=== PATIENT | female | born 1930 | race Caucasian/White ===

== ENCOUNTER 2018-01-24 15:26 | Emergency (ER) | payer OTHER ==
--- NOTE | 2018-01-24 15:55 | ER ---
Nurse's Notes [facility] Name: Clifton Wagoner Age: 87 yrs Sex: Female : 1930 Arrival Date: 01/24/2018 Time: 15:30 Bed Treatment Private MD: Diagnosis: Rash and other nonspecific skin eruption Presentation: 01/24 15:33 Presenting complaint: Patient states: RASH ON MY CHEST FOR THE PAST 5 YEARS, IT ITCHES. ch NO OTHER SYMPTOMS. Transition of care: patient was not received from another setting of care. Onset: The symptoms/episode began/occurred 5 year(s) ago. Anaphylaxis evaluation, no signs or symptoms of anaphylaxis were noted. Onset of symptoms was 2012. Risk Assessment: Do you want to hurt yourself or someone else? Patient reports no desire to harm self or others. Initial Sepsis Screen: Does the patient meet any 2 criteria? No. Patient's initial sepsis screen is negative. Does the patient have a suspected source of infection? No. Patient's initial sepsis screen is negative. Care prior to arrival: None. 15:33 Method Of Arrival: Ambulatory 15:33 Acuity: RENETTA 5 ch Triage Assessment: 15:35 General: Appears in no apparent distress. comfortable, Behavior is calm, cooperative, ch appropriate for age. Pain: Denies pain. Derm: Reports itching. 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 - Social history:: Smoking status: Patient uses tobacco products, smokes one-half pack cigarettes per day. - Ebola Screening: : Patient negative for fever greater than or equal to 101.5 degrees Fahrenheit, and additional compatible Ebola Virus Disease symptoms Patient denies exposure to infectious person Patient denies travel to an Ebola-affected area in the 21 days before illness onset No symptoms or risks identified at this time. - Family history:: not pertinent. Screenin:05 Abuse screen: Denies threats or abuse. Denies injuries from another. Nutritional rv screening: No deficits noted. Tuberculosis screening: No symptoms or risk factors identified. Fall Risk No fall in past 12 months (0 pts). No secondary diagnosis (0 pts). No IV (0 pts). Ambulatory Aid- Crutches/Cane/Walker (15 pts). Gait- Normal/Bed Rest/Wheelchair (0 pts) Mental Status- Oriented to own ability (0 pts). Total Dickerson Fall Scale indicates No Risk (0-24 pts). Assessment: 16:04 General: Appears in no apparent distress. comfortable, Behavior is calm, cooperative. rv Pain: Denies pain. Neuro: Level of Consciousness is awake, alert, obeys commands, Oriented to person, place, time, situation. Cardiovascular: Capillary refill < 3 seconds. Respiratory: Airway is patent Respiratory effort is even, Breath sounds are clear bilaterally. GI: No signs and/or symptoms were reported involving the gastrointestinal system. : No signs and/or symptoms were reported regarding the genitourinary system. EENT: No signs and/or symptoms were reported regarding the EENT system. Derm: Rash noted that is itchy. Vital Signs: 15:35 BP 158 / 66; Pulse 75; Resp 20; Temp 99; Pulse Ox 95% on R/A; Weight 74.39 kg; Height 5 ch ft. 9 in. (175.26 cm); Pain 0/10; 16:06 BP 156 / 62; Pulse 77; Pulse Ox 95% on R/A; rv 15:35 Body Mass Index 24.22 (74.39 kg, 175.26 cm) ED Course: 15:30 Patient arrived in ED. as 15:34 Triage completed. 15:35 Arm band placed on left wrist. Patient placed in an exam room, on a stretcher. 15:37 Bartolome Yin MD is Attending Physician. ma2 16:06 Patient has correct armband on for positive identification. Bed in low position. Call rv light in reach. Side rails up X 1. Adult w/ patient. Pulse ox on. NIBP on. 16:06 No provider procedures requiring assistance completed. Patient did not have IV access rv during this emergency room visit. Administered Medications: No medications were administered Outcome: 15:54 Discharge ordered by . ma2 16:06 Discharged to home ambulatory. rv 16:06 Condition: good 16:06 Discharge instructions given to patient, family, Instructed on discharge instructions, follow up and referral plans. medication usage, Demonstrated understanding of instructions, follow-up care, medications, Prescriptions given X 1. 16:07 Patient left the ED. rv Signatures: Penny Costa, RN RN Dayana Solorzano Mohammad, MD MD ma2 Guy Gould RN RN rv
--- NOTE | 2018-01-24 15:55 | EDPHYS ---
Physician Documentation [facility] Name: Clifton Wagoner Age: 87 yrs Sex: Female : 1930 Arrival Date: 01/24/2018 Time: 15:30 Bed Treatment Private MD: ED Physician Bartolome Yin HPI: 01/24 15:51 This 87 yrs old Female presents to ER via Ambulatory with complaints of Rash, ma2 Itching. 15:51 The patient's rash thought to be caused by allergies. The rash is located on the chest. ma2 Onset: The symptoms/episode began/occurred gradually, 3 day(s) ago. Associated signs and symptoms: Pertinent negatives: burning sensation, difficulty breathing, fever, Pain swelling of tongue. Severity of symptoms: At their worst the symptoms were mild in the emergency department the symptoms are unchanged. Treatment given at home: Benadryl. The patient has not experienced similar symptoms in the past, The patient has experienced similar episodes in the past. 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 - Social history:: Smoking status: Patient uses tobacco products, smokes one-half pack cigarettes per day. - Ebola Screening: : Patient negative for fever greater than or equal to 101.5 degrees Fahrenheit, and additional compatible Ebola Virus Disease symptoms Patient denies exposure to infectious person Patient denies travel to an Ebola-affected area in the 21 days before illness onset No symptoms or risks identified at this time. - Family history:: not pertinent. ROS: 15:51 Constitutional: Negative for fever, chills, and weight loss, Cardiovascular: Negative ma2 for chest pain, palpitations, and edema, Respiratory: Negative for shortness of breath, cough, wheezing, and pleuritic chest pain, Abdomen/GI: Negative for abdominal pain, nausea, diarrhea, and constipation. 15:51 Skin: Positive for rash, Negative for abscesses, avulsion, diaphoresis, erythema, jaundice. 15:51 All other systems are negative. Exam: 15:51 Constitutional: This is a well developed, well nourished patient who is awake, alert, ma2 and in no acute distress. Chest/axilla: Normal chest wall appearance and motion. Nontender with no deformity. No lesions are appreciated. Cardiovascular: Regular rate and rhythm with a normal S1 and S2. No gallops, murmurs, or rubs. Normal PMI, no JVD. No pulse deficits. Respiratory: Lungs have equal breath sounds bilaterally, clear to auscultation and percussion. No rales, rhonchi or wheezes noted. No increased work of breathing, no retractions or nasal flaring. MS/ Extremity: Pulses equal, no cyanosis. Neurovascular intact. Full, normal range of motion. Neuro: Awake and alert, GCS 15, oriented to person, place, time, and situation. Cranial nerves II-XII grossly intact. Motor strength 5/5 in all extremities. Sensory grossly intact. Cerebellar exam normal. Normal gait. 15:51 Skin: lesion(s), has a fungal rash between breast and another ecchymosis above that, takes plavix . Vital Signs: 15:35 BP 158 / 66; Pulse 75; Resp 20; Temp 99; Pulse Ox 95% on R/A; Weight 74.39 kg; Height 5 ch ft. 9 in. (175.26 cm); Pain 0/10; 16:06 BP 156 / 62; Pulse 77; Pulse Ox 95% on R/A; rv 15:35 Body Mass Index 24.22 (74.39 kg, 175.26 cm) ch MDM: 15:37 Patient medically screened. ca2 15:51 Differential diagnosis: allergic reaction, ecchymosis, fungal rash. Data reviewed: [facility] vital signs, nurses notes, EMS record. Counseling: I had a detailed discussion with the patient and/or guardian regarding: the historical points, exam findings, and any diagnostic results supporting the discharge/admit diagnosis, the presence of at least one elevated blood pressure reading (>120/80) during this emergency department visit, the need for outpatient follow up. Administered Medications: No medications were administered Disposition: 01/24/18 15:54 Discharged to Home. Impression: Rash and other nonspecific skin eruption. - Condition is Stable. - Discharge Instructions: Rash, [id number]. - Prescriptions for Nystatin- Triamcinolone 100,000-0.1 unit/g-% Topical Cream - apply 1 application by TOPICAL route 2 times per day; 1 tube. - Medication Reconciliation Form, Thank You Letter, Antibiotic Education, Prescription Opioid Use form. - Follow up: Private Physician; When: Tomorrow; Reason: Continuance of care. Signatures: Penny Costa, MAUDE RN Bartolome Cantrell MD MD ma2 Guy Gould RN RN rv Corrections: (The following items were deleted from the chart) 16:07 15:54 01/24/2018 15:54 Discharged to Home. Impression: Rash and other nonspecific skin rv eruption. Condition is Stable. Forms are Medication Reconciliation Form, Thank You Letter, Antibiotic Education, Prescription Opioid Use. Follow up: Private Physician; When: Tomorrow; Reason: Continuance of care. ma2
== END 2018-01-24 16:07 | disposition home or self-care (01) ==
LOC: ER 15:26
DX: R21 Rash and other nonspecific skin eruption (principal); I10 Essential (primary) hypertension; E11.9 Type 2 diabetes mellitus without complications; F17.210 Nicotine dependence, cigarettes, uncomplicated; Z88.3 Allergy status to other anti-infective agents
CPT/HCPCS: 99283

== ENCOUNTER 2018-05-12 08:27 | Inpatient (IN) | payer OTHER ==
[2018-05-12 08:51] LABS: Absolute Lymphocytes (CBC) 0.7 K/uL (0.7-4.9); Absolute Monocytes 0.3 K/uL (0.1-1.3); Absolute Neutrophil 16.7 K/uL (1.8-8.0); Basophils % 0.1 % (0-1.3); Eosinophils % 1.1 % (0-4.4); Hematocrit 35.8 % (36.0-45.0); MPV 7.2 fL (7.6-11.3); Monocytes % 1.9 % (3.3-12.3)
[2018-05-12] MEDS ORDERED: ACETAMINOPHEN 500 MG TAB ONE ×3 (08:51→16:32)
[2018-05-12] MEDS ORDERED: LEVALBUTEROL 1.25 MG/3 ML NEB ONE ×2 (08:51→10:07)
[2018-05-12 08:57] LABS: Protime INR 1.04
[2018-05-12 09:18] LABS: ALT/SGPT 18 U/L (12-78); AST/SGOT 28 U/L (15-37); Albumin 3.3 g/dL (3.4-5.0); Alkaline Phosphatase 133 U/L (45-117); BUN Blood Urea Nitrogen 25 mg/dL (7-18); Bicarbonate 28 mmol/L (21-32); Bilirubin Direct 0.2 mg/dL (0-0.2); Bilirubin Total 0.4 mg/dL (0.2-1.0); CKMB Creatine Kinase MB < 1.0 ng/mL (0.3-3.6); Creatine Phosphokinase 99 U/L (26-192); Glucose Level 88 mg/dL (74-106); Lipase 74 U/L (73-393); Potassium 4.9 mmol/L (3.5-5.1); Sodium Level 140 mmol/L (136-145); Troponin (Emerg Dept Use Only) < 0.02 ng/mL (0.0-0.045)
[2018-05-12 09:46] LABS: Anisocytosis 1+; Basophilic Stippling 1+; Blood Morphology Comment NOTED (NOT SEEN); Platelet Estimate ADEQ; Platelets, Giant FEW; Polychromasia 1+
--- NOTE | 2018-05-12 09:47 | RAD REPORT ---
EXAM DESCRIPTION: Dinorah Single View05/12/2018 9:05 am CLINICAL HISTORY: Shortness of breath COMPARISON: April 25, 2018 FINDINGS: Diffuse bilateral interstitial lung opacities are present. Heart is mildly enlarged IMPRESSION: Mild progression in diffuse bilateral interstitial lung opacities likely represent a co mbination of pneumonitis/atypical pneumonia or pulmonary edema superimposed over pulmonary fibrosis
[2018-05-12] MEDS ORDERED: CEFTRIAXONE/SWI 1gm 1 GM/10 ML SYR ONE (09:55)
[2018-05-12] MEDS ORDERED: AZITHROMYCIN 500 MG/250 ML BAG ONE (09:56)
--- NOTE | 2018-05-12 10:33 | ER ---
Nurse's Notes [facility] Name: Clifton Wagoner Age: 88 yrs Sex: Female : 1930 Arrival Date: 05/12/2018 Time: 08:29 Bed 7 Private MD: Diagnosis: Pneumonia, unspecified organism;Sepsis, unspecified organism Presentation: 05/12 08:26 Presenting complaint: EMS states: called for lift assist first but pt had generalized sv leg weakness, dyspnea, cough. 87% RA, A\T\A tx given 97%, Solumedrol 125 mg IVP, BP 163/72 HR-88 Temp-101.7. 20G R AC. Transition of care: patient was not received from another setting of care. Onset of symptoms was May 12, 2018. Risk Assessment: Do you want to hurt yourself or someone else? Patient reports no desire to harm self or others. Initial Sepsis Screen: Does the patient meet any 2 criteria? RR > 20 per min. Temp <36.0*C (96.8*F)) or > 38.3*C (100.9*F). HR > 90 bpm. Yes Does the patient have a suspected source of infection? No. Patient's initial sepsis screen is negative. Care prior to arrival: Medication(s) given: Albuterol Neb x 1, Atrovent Neb x 1, Solumedrol 125 mg IVP IV initiated. 20 GA, in the right antecubital area, Med neb given. Oxygen administered. via a nebulizer mask. 08:26 Method Of Arrival: EMS: [facility] sv 08:26 Acuity: RENETTA 2 sv Triage Assessment: 08:30 General: Appears in no apparent distress. uncomfortable, Behavior is calm, cooperative, sv appropriate for age. Pain: Denies pain. Neuro: Level of Consciousness is awake, alert, obeys commands, Oriented to person, place, time, situation, Moves all extremities. Full function. Respiratory: Reports shortness of breath at rest on exertion Airway is patent Respiratory effort is even, labored, Respiratory pattern is symmetrical, tachypnea Onset: The symptoms/episode began/occurred this morning, the patient has moderate shortness of breath. Derm: Skin is pink, warm \T\ dry. Historical: - Allergies: 08:37 STRIPTOMYCIN; sv - Home Meds: 08:54 ProAir HFA inhalation inhalation [Active]; fenofibrate oral oral [Active]; gabapentin sv 600 mg oral tab 1 tab 3 times per day [Active]; Melrose 10-325 mg Oral tab 1 tab every 6 hours [Active]; amlodipine 10 mg tab 1 tab once daily [Active]; clopidogrel 75 mg oral tab 1 tab once daily [Active]; donepezil 10 mg oral tab 1 tab once daily [Active]; montelukast 10 mg oral tab 1 tab once daily [Active]; pantoprazole 40 mg oral TbEC 1 tab once daily [Active]; duloxetine 60 mg oral cpDR 1 cap once daily [Active]; Centrum oral oral [Active]; cranberry oral oral [Active]; Vitamin E Oral [Active]; Stool Softener oral oral [Active]; - PMHx: 08:37 Asthma; Diabetes - NIDDM; 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 - Social history:: Smoking status: Patient/guardian denies using tobacco. - Ebola Screening: : No symptoms or risks identified at this time. Screenin:50 Abuse screen: Denies threats or abuse. Denies injuries from another. Nutritional sv screening: No deficits noted. Tuberculosis screening: No symptoms or risk factors identified. Fall Risk None identified. Assessment: 10:18 Reassessment: Patient appears in no apparent distress at this time. Patient and/or sv family updated on plan of care and expected duration. Pain level reassessed. Patient is alert, oriented x 3, equal unlabored respirations, skin warm/dry/pink. Patient states symptoms have improved. Respiratory: Respiratory effort is even, unlabored, Respiratory pattern is regular, tachypnea Breath sounds with wheezes bilaterally. 10:55 Reassessment: Patient appears in no apparent distress at this time. Patient and/or sv family updated on plan of care and expected duration. Pain level reassessed. Patient is alert, oriented x 3, equal unlabored respirations, skin warm/dry/pink. Patient states symptoms have improved. Respiratory: Respiratory effort is even, unlabored, Respiratory pattern is regular, tachypnea. 11:32 Reassessment: Patient appears in no apparent distress at this time. Patient and/or sv family updated on plan of care and expected duration. Pain level reassessed. Patient is alert, oriented x 3, equal unlabored respirations, skin warm/dry/pink. Patient states symptoms have improved. 13:21 Reassessment: Patient appears in no apparent distress at this time. Patient and/or sv family updated on plan of care and expected duration. Pain level reassessed. Patient is alert, oriented x 3, equal unlabored respirations, skin warm/dry/pink. Patient states feeling better. Patient states symptoms have improved. Cardiovascular: Rhythm is sinus rhythm. Vital Signs: 08:30 BP 144 / 57; Pulse 104 MON; Resp 32 S; Temp 102.6(O); Pulse Ox 98% on R/A; sv 10:09 BP 123 / 68; Pulse 92; Resp 26; Pulse Ox 100% ; ms 10:22 BP 129 / 53; Pulse 99; Resp 22; Pulse Ox 100% on Nebulizer Mask; sv 10:54 Temp 99.9(O); sv 11:32 BP 101 / 76; Pulse 100; Resp 26; Pulse Ox 99% on 2 lpm NC; sv 08:30 Sinus tachycardia sv ED Course: 08:26 Maintain EMS IV. Dressing intact. Good blood return noted. Site clean \T\ dry. Gauge \T\ sv site: 20G R AC. Flushed right antecubital with 5 ml normal saline. 08:29 Patient arrived in ED. ss 08:30 Arm band placed on. sv 08:30 certified scrum master on. Pulse ox on. NIBP on. Door closed. Head of bed elevated. sv 08:31 Frederic Buck MD is Attending Physician. kdr 08:32 Heather Lopes, MAUDE is Primary Nurse. sv 08:35 Initial lab(s) drawn, by ED staff, sent to lab. sv 08:36 Triage completed. sv 08:49 EKG done, by diesel lube tech. reviewed by Frederic Buck MD. at1 08:50 Patient has correct armband on for positive identification. Placed in gown. Bed in low sv position. Side rails up X 1. Adult w/ patient. 09:00 Basic Metabolic Panel Sent. sv 09:00 CBC with Diff Sent. sv 09:00 Ckmb Sent. sv 09:05 Chest Single View XRAY In Process Unspecified. EDMS 09:40 First set of blood cultures drawn by ak. sv 09:55 Second set of blood cultures drawn by me. sv 10:30 Samina Alberto MD is Hospitalizing Provider. kdr 10:34 Blood Culture Adult (2) Sent. sv 11:32 Awaiting bed assignment. sv 13:21 No provider procedures requiring assistance completed. Patient admitted, IV remains in sv place. intact. Administered Medications: 08:48 CANCELLED (Physician Discretion): NS 0.9% (30 ml/kg) 30 ml/kg IV at bolus once; Sepsis sv Protocol 08:49 Drug: Tylenol 1000 mg Route: PO; sv 09:30 Follow up: Response: No adverse reaction sv 08:49 Drug: Xopenex (3) 1.25 mg Route: Inhalation; sv 10:12 Drug: Rocephin - (cefTRIAXone) 1 grams Route: IVPB; Infused Over: 30 mins; Site: right sv antecubital; 10:18 Follow up: Response: No adverse reaction; IV Status: Completed infusion; IV Intake: 10mlsv 10:18 Drug: AZITHromycin 500 mg Route: IVPB; Infused Over: 1 hrs; Site: right antecubital; sv 11:24 Follow up: IV Status: Completed infusion; IV Intake: 250ml dm5 10:21 Drug: Xopenex (3) 1.25 mg Route: Inhalation; sv 10:57 Drug: NS 0.9% 500 ml Route: IV; Rate: bolus; Site: right antecubital; sv 11:45 Follow up: Response: No adverse reaction; IV Status: Completed infusion; IV Intake: sv 500ml Point of Care Testing: Blood Glucose: 08:33 Blood Glucose: 99 mg/dL; sv Ranges: Intake: 10:18 IV: 10ml; Total: 10ml. sv 11:24 IV: 250ml; Total: 260ml. dm5 11:45 IV: 500ml; Total: 760ml. sv Outcome: 10:32 Decision to Hospitalize by Provider. kdr 13:22 Admitted to Tele accompanied by tech, family with patient, via stretcher, room 214, sv with oxygen, with chart, Report called to Rayna SANTORO 13:22 Condition: stable 13:22 Instructed on the need for admit. 13:31 Patient left the ED. sv Signatures: Dispatcher [facility] Karol Ariza, RN RN dm5 Heather Lopes RN RN Frederic Covington MD MD [facility] Taya Espinoza ms, [place], RN RN Lauren Reddy, [facility] EK Tat1
--- NOTE | 2018-05-12 10:34 | EDPHYS ---
Physician Documentation [facility] Name: Clifton Wagoner Age: 88 yrs Sex: Female : 1930 Arrival Date: 05/12/2018 Time: 08:29 Bed 7 Private MD: ED Physician Frederic Buck HPI: 05/12 09:50 This 88 yrs old Female presents to ER via EMS with complaints of Shortness Of kdr Breath. 09:50 The patient has shortness of breath at rest, with light activity. Onset: The kdr symptoms/episode began/occurred suddenly, this morning. Duration: The symptoms are continuous, and are steadily getting worse. The patient's shortness of breath is aggravated by exertion, light activity. The patient's shortness of breath is aggravated by coughing. Associated signs and symptoms: Pertinent positives:. Severity of symptoms: At their worst the symptoms were moderate severe just prior to arrival, in the emergency department the symptoms are unchanged. It is unknown whether or not the patient has had similar symptoms in the past. The patient has not recently seen a physician. Historical: - Allergies: 08:37 STRIPTOMYCIN; sv - Home Meds: 08:54 ProAir HFA inhalation inhalation [Active]; fenofibrate oral oral [Active]; gabapentin sv 600 mg oral tab 1 tab 3 times per day [Active]; [place] 10-325 mg Oral tab 1 tab every 6 hours [Active]; amlodipine 10 mg tab 1 tab once daily [Active]; clopidogrel 75 mg oral tab 1 tab once daily [Active]; donepezil 10 mg oral tab 1 tab once daily [Active]; montelukast 10 mg oral tab 1 tab once daily [Active]; pantoprazole 40 mg oral TbEC 1 tab once daily [Active]; duloxetine 60 mg oral cpDR 1 cap once daily [Active]; Centrum oral oral [Active]; cranberry oral oral [Active]; Vitamin E Oral [Active]; Stool Softener oral oral [Active]; - PMHx: 08:37 Asthma; Diabetes - NIDDM; 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 - Social history:: Smoking status: Patient/guardian denies using tobacco. - Ebola Screening: : No symptoms or risks identified at this time. ROS: 09:50 Constitutional: Negative for weight loss - has had fever and chills Eyes: Negative for kdr injury, pain, redness, and discharge, Neck: Negative for injury, pain, and swelling, Cardiovascular: Negative for chest pain, palpitations, and edema. 09:50 Abdomen/GI: Negative for abdominal pain, nausea, vomiting, diarrhea, and constipation, Back: Negative for injury and pain, : Negative for injury, bleeding, discharge, and swelling, MS/Extremity: Negative for injury and deformity, Skin: Negative for injury, rash, and discoloration, Neuro: Negative for headache, weakness, numbness, tingling, and seizure activity. Psych: Negative for depression, anxiety, suicide ideation, homicidal ideation, and hallucinations, Allergy/Immunology: Negative for hives, rash, and allergies, Endocrine: Negative for neck swelling, polydipsia, polyuria, polyphagia, and marked weight changes, Hematologic/Lymphatic: Negative for swollen nodes, abnormal bleeding, and unusual bruising. 09:50 Respiratory: Positive for cough, with clear sputum, dyspnea on exertion, shortness of breath, at rest. wheezing, expiratory. Exam: 09:50 Constitutional: This is a well developed, well nourished patient who is awake, alert, kdr and in mild to moderate distress. Head/Face: Normocephalic, atraumatic. Eyes: Pupils equal round and reactive to light, extra-ocular motions intact. Lids and lashes normal. Conjunctiva and sclera are non-icteric and not injected. Cornea within normal limits. Periorbital areas with no swelling, redness, or edema. Neck: Trachea midline, no thyromegaly or masses palpated, and no cervical lymphadenopathy. Supple, full range of motion without nuchal rigidity, or vertebral point tenderness. No Meningismus. Chest/axilla: Normal chest wall appearance and motion. Nontender with no deformity. No lesions are appreciated. Abdomen/GI: Soft, non-tender, with normal bowel sounds. No distension or tympany. No guarding or rebound. No evidence of tenderness throughout. Back: No spinal tenderness. No costovertebral tenderness. Full range of motion. MS/ Extremity: Pulses equal, no cyanosis. Neurovascular intact. Full, normal range of motion. Neuro: Awake and alert, GCS 15, oriented to person, place, time, and situation. Cranial nerves II-XII grossly intact. Motor strength 5/5 in all extremities. Sensory grossly intact. Cerebellar exam normal. Normal gait. Psych: Awake, alert, with orientation to person, place and time. Behavior, mood, and affect are within normal limits. 09:50 Respiratory: mild respiratory distress is noted, Respirations: labored breathing, that is mild, Breath sounds: rales, bronchial sounds, that are moderate, are heard diffusely, wheezing: that is moderate, is heard diffusely. Vital Signs: 08:30 BP 144 / 57; Pulse 104 MON; Resp 32 S; Temp 102.6(O); Pulse Ox 98% on R/A; sv 10:09 BP 123 / 68; Pulse 92; Resp 26; Pulse Ox 100% ; ms 10:22 BP 129 / 53; Pulse 99; Resp 22; Pulse Ox 100% on Nebulizer Mask; sv 10:54 Temp 99.9(O); sv 11:32 BP 101 / 76; Pulse 100; Resp 26; Pulse Ox 99% on 2 lpm NC; sv 08:30 Sinus tachycardia sv MDM: 10:32 Patient medically screened. kdr 10:32 Data reviewed: vital signs, nurses notes, lab test result(s), radiologic studies. kdr Counseling: I had a detailed discussion with the patient and/or guardian regarding: the historical points, exam findings, and any diagnostic results supporting the discharge/admit diagnosis, lab results, radiology results, the need for further work-up and treatment in the hospital. 05/12 08:39 Order name: Basic Metabolic Panel 05/12 08:39 Order name: Blood Culture Adult (2) 05/12 08:39 Order name: CBC with Diff 05/12 08:39 Order name: Ckmb 05/12 08:39 Order name: CPK; Complete Time: 09:34 05/12 08:39 Order name: Lactate; Complete Time: 09:34 05/12 08:39 Order name: LFT's; Complete Time: 09:34 05/12 08:39 Order name: Lipase; Complete Time: 09:34 05/12 08:39 Order name: Procalcitonin; Complete Time: 09:34 05/12 08:39 Order name: Protime (+inr); Complete Time: 09:34 05/12 08:39 Order name: Ptt, Activated; Complete Time: 09:34 sv 05/12 08:39 Order name: Troponin (emerg Dept Use Only); Complete Time: 09:34 sv 05/12 08:39 Order name: Urine Microscopic Only sv 05/12 08:40 Order name: Basic Metabolic Panel; Complete Time: 09:34 EDMS 05/12 08:39 Order name: Chest Single View XRAY; Complete Time: 10:26 sv 05/12 08:39 Order name: Accucheck; Complete Time: 08:48 sv 05/12 08:40 Order name: Blood Culture EDMS 05/12 08:40 Order name: CBC with Automated Diff; Complete Time: 10:26 EDMS 05/12 08:40 Order name: CKMB Creatine Kinase MB; Complete Time: 09:34 EDMS 05/12 08:58 Order name: EKG Electrocardiogram; Complete Time: 09:00 EDMS 05/12 09:49 Order name: Manual Differential; Complete Time: 10:26 EDMS 05/12 10:38 Order name: BNP [facility] 05/12 08:39 Order name: Cardiac monitoring; Complete Time: 08:39 sv 05/12 08:39 Order name: EKG - Nurse/Tech; Complete Time: 08:40 sv 05/12 08:39 Order name: IV Saline Lock - Large Bore; Complete Time: 08:40 sv 05/12 08:39 Order name: Labs collected and sent; Complete Time: 08:40 sv 05/12 08:39 Order name: O2 Per Protocol; Complete Time: 08:40 sv 05/12 08:39 Order name: O2 Sat Monitoring; Complete Time: 08:40 sv Administered Medications: 08:48 CANCELLED (Physician Discretion): NS 0.9% (30 ml/kg) 30 ml/kg IV at bolus once; Sepsis sv Protocol 08:49 Drug: Tylenol 1000 mg Route: PO; sv 09:30 Follow up: Response: No adverse reaction sv 08:49 Drug: Xopenex (3) 1.25 mg Route: Inhalation; sv 10:12 Drug: Rocephin - (cefTRIAXone) 1 grams Route: IVPB; Infused Over: 30 mins; Site: right sv antecubital; 10:18 Follow up: Response: No adverse reaction; IV Status: Completed infusion; IV Intake: 10mlsv 10:18 Drug: AZITHromycin 500 mg Route: IVPB; Infused Over: 1 hrs; Site: right antecubital; sv 11:24 Follow up: IV Status: Completed infusion; IV Intake: 250ml dm5 10:21 Drug: Xopenex (3) 1.25 mg Route: Inhalation; sv 10:57 Drug: NS 0.9% 500 ml Route: IV; Rate: bolus; Site: right antecubital; sv 11:45 Follow up: Response: No adverse reaction; IV Status: Completed infusion; IV Intake: sv 500ml Point of Care Testing: Blood Glucose: 08:33 Blood Glucose: 99 mg/dL; sv Ranges: Critical Glucose Levels:Adult <50 mg/dl or >400 mg/dl <40 mg/dl or >180 mg/dl Disposition: 05/12/18 10:32 Hospitalization ordered by Samina Alberto for Inpatient Admission. Preliminary diagnosis are Pneumonia, unspecified organism, Sepsis, unspecified organism. - Bed requested for Telemetry/MedSurg (Inpatient). - Status is Inpatient Admission. sv - Condition is Serious. - Problem is new. - Symptoms have improved. UTI on Admission? No Signatures: Dispatcher [employer] EDMI Heather Lopes RN RN Jessica Walden RN RN Frederic Buck MD MD [facility] Karol Roberson RN dm5 Corrections: (The following items were deleted from the chart) 08:48 08:39 NS 0.9% (30 ml/kg) 30 ml/kg IV at bolus once; Sepsis Protocol ordered. sv sv 09:51 08:58 CBC Smear Scan ordered. EDMI EDMS 13:12 10:32 Hospitalization Ordered by Samina Alberto MD for Inpatient Admission. Preliminary diagnosis is Pneumonia, unspecified organism; Sepsis, unspecified organism. Bed requested for Telemetry/MedSurg (Inpatient). Status is Inpatient Admission. Condition is Serious. Problem is new. Symptoms have improved. UTI on Admission? No. kdr 13:31 13:12 05/12/2018 10:32 Hospitalization Ordered by Samina Alberto MD for Inpatient sv Admission. Preliminary diagnosis is Pneumonia, unspecified organism; Sepsis, unspecified organism. Bed requested for Telemetry/MedSurg (Inpatient). Status is Inpatient Admission. Condition is Serious. Problem is new. Symptoms have improved. UTI on Admission? No. dw
[2018-05-12] MEDS ORDERED: NA CHLORIDE 0.9% 500 ML ONE (10:59)
--- NOTE | 2018-05-12 12:20 | EKG ---
Test Date: 2018-05-12 Test Time: 08:37:43 Hose Seamer: ZEUS MEASUREMENT RESULTS: Intervals: Rate: 104 [place]: 136 QRSD: 122 QT: 346 QTc: 454 [place]: P: 60 [place]: 136 QRS: 45 T: 3 INTERPRETIVE STATEMENTS: Sinus tachycardia Right bundle branch block Cannot rule out Septal infarct, age undetermined Cannot rule out Inferior infarct, age undetermined Abnormal ECG No previous ECG available for comparison Electronically Signed On 05-12-18 12:19:37 CADASTRAL SURVEYOR by Bandar Nguyễn
[2018-05-12] MEDS ORDERED: ONDANSETRON 4 MG/2 ML VIAL IV PRN (13:29)
[2018-05-12] MEDS: IPRATROPIUM BROM 0.5MG/2.5ML NEB SCH ×2 (14:00→19:18)
[2018-05-12 14:24] VITALS: BMI 24.7
[2018-05-12] MEDS: ENOXAPARIN 40 MG/0.4 ML SQ SCH (14:48)
[2018-05-12] MEDS: ACETAMINOPHEN 500 MG TAB PO PRN (16:33)
--- NOTE | 2018-05-12 17:19 | P.HP ---
Certification for Inpatient Patient admitted to: Inpatient Practitioner: I am a practitioner with admitting privileges, knowledge of patient current condition, hospital course, and medical plan of care. Services: Services provided to patient in accordance with Admission requirements found in Title 42 Section 412.3 of the Code of Federal Regulations Patient History Date of Service: 05/12/18 Reason for admission: Shortness of breath History of Present Illness: This is an 88-year-old female with history of hypertension, COPD, current smoker admitted for shortness of breath and fever. Per her [id number], patient this morning while getting out of bed, could not stand up and started sliding down. She was also having wheezing and shortness of breath. Sister-in- law called the EMS, and patient was brought to the ER via EMS. In the ER, patient's initial vitals were blood pressure 144/57, heart rate of 107, respirations of 32 and 98% on room air. She was given Xopenex, Rocephin and Zithromax. Her lactic acid was negative, but she did have elevated pro calcitonin with elevated WBC count. She responded well to the breathing treatments. She was found to have possible left lower lobe pneumonia versus pneumonitis versus pulmonary fibrosis on chest x-ray. At the time of my exam, patient was sleepy, but arousable. She was on the nasal cannula and in no acute distress. Of note, patient was started on nitrofurantoin yesterday for a UTI. She has taken only 1 dose of it so far. At baseline, patient uses a walker at home to get to the bathroom and to go outside to smoke. Other than that, her [id number] states that she does not really go out too much. When she does walk more than around the house, she gets short of breath very quickly. She continues to smoke approximately 1 pack a day. Sister also states that she has had this rash on her chest for about a year but she continues to periodically scratch. She has created a pretty big wound on the chest. She has also tried 2 tubes of some sort of cream, sister in law is not sure of the name of the cream but will bring it tomorrow. Allergies streptomycin Allergy (Verified 05/12/18 10:39) Hives Home Medications: Albuterol Sulfate [Proair Hfa] 1 puff IH DAILY 05/12/18 Amlodipine Besylate 10 mg PO DAILY 05/12/18 Clopidogrel Bisulfate [Clopidogrel] 75 mg PO DAILY 05/12/18 Docusate Sodium [Stool Softener] 100 mg PO DAILY 05/12/18 Donepezil HCl 10 mg PO BEDTIME 05/12/18 Duloxetine HCl 60 mg PO DAILY 05/12/18 Fenofibrate Nanocrystallized [Fenofibrate] 145 mg PO DAILY 05/12/18 Gabapentin 600 mg PO TID 05/12/18 Hydrocodone Bit/Acetaminophen [Hydrocodon-Acetaminoph 7.5-325] 1 tab PO QIDP PRN 05/12/18 Montelukast [Singulair*] 10 mg PO DAILY 05/12/18 Multivitamin [Daily Multiple Vitamin] 1 tab PO DAILY 05/12/18 Nitrofurantoin Monohyd/M-Cryst [Nitrofurantoin [place]-Mcr 100 mg] 100 mg PO BID Pantoprazole Sodium 40 mg PO DAILY 05/12/18 Vitamin E 400 unit PO BID 05/12/18 - Past Medical/Surgical History Has patient received pneumonia vaccine in the past: Yes Diabetic: No -: HTN -: COPD -: Depression -: Hyperlipidemia -: Dementia - Social History Smoking Status: Current every day smoker Alcohol use: No CD- Drugs: No Caffeine use: No Place of Residence: Home Review of Systems 10-point ROS is otherwise unremarkable Physical Examination - Vital Signs Temperature: 98.9 F Blood Pressure: 145/67 Pulse: 100 Respirations: 26 Pulse Ox (%): 92 - Physical Exam General: In no apparent distress, Cachectic, Other (Sleepy, arousable; elderly, ill appearing woman) HEENT: Atraumatic, PERRLA, Mucous membr. moist/pink, EOMI, Sclerae nonicteric Neck: Supple, 2+ carotid pulse no bruit, No LAD, Without JVD or thyroid abnormality Respiratory: Dull, Crackles/rales, Expiratory wheezes Cardiovascular: Normal S1 S2, Irregular heart rate/rhythm Gastrointestinal: Normal bowel sounds, No tenderness Musculoskeletal: No tenderness Integumentary: Rash(es) (Noted on her chest area, approximately 0.5 x 0.5 area of open lesion that patient has scratched.) Neurological: Other (Unable to be done as patient is very sleepy.) - Studies Laboratory Data (last 24 hrs) 05/12/18 08:40: PT 12.3, INR 1.04, APTT 29.8 05/12/18 08:40: WBC 18.0 H, Hgb 11.5 L, Hct 35.8 L, Plt Count 360 05/12/18 08:40: Sodium 140, Potassium 4.9, BUN 25 H, Creatinine 1.39 H, Glucose 88, Total Bilirubin 0.4, AST 28, ALT 18, Alkaline Phosphatase 133 H, Lipase 74 Assessment and Plan - Problems (Diagnosis) (1) Sepsis Current Visit: Yes Status: Acute Qualifiers: Sepsis type: sepsis due to unspecified organism Qualified Code(s): A41.9 - Sepsis, unspecified organism (2) COPD (chronic obstructive pulmonary disease) Current Visit: Yes Status: Chronic Qualifiers: COPD type: COPD with acute exacerbation Qualified Code(s): J44.1 - Chronic obstructive pulmonary disease with (acute) exacerbation (3) Pneumonia Current Visit: Yes Status: Acute Qualifiers: Pneumonia type: due to unspecified organism Laterality: left Lung location: lower lobe of lung Qualified Code(s): J18.1 - Lobar pneumonia, unspecified organism (4) UTI (urinary tract infection) Current Visit: Yes Status: Acute Qualifiers: Urinary tract infection type: site unspecified Hematuria presence: without hematuria Qualified Code(s): N39.0 - Urinary tract infection, site not specified (5) Hypertension Current Visit: Yes Status: Chronic Qualifiers: Hypertension type: essential hypertension Qualified Code(s): I10 - Essential (primary) hypertension (6) Rash and nonspecific skin eruption Current Visit: Yes Status: Chronic (7) Depression Current Visit: Yes Status: Chronic Qualifiers: Depression Type: unspecified Qualified Code(s): F32.9 - Major depressive disorder, single episode, unspecified (8) Tobacco abuse Current Visit: Yes Status: Acute - Plan This is an 88-year-old female with: Sepsis (Acute) A41.9 Febrile, tachycardic and elevated WBC. Possible sources include: UTI, pneumonia, skin/rash IV fluid bolus given in the ER. Will continue maintenance IV fluids at 75 cc/ hour. IV antibiotics with Rocephin and azithromycin, day #1. Follow up blood cultures. Urine cultures not done in the ER, ordered. Will follow up Pneumonia (Acute) J18.9 Continue IV antibiotics as above UTI (urinary tract infection) (Acute) N39.0 Continue IV antibiotics. No UA done in the ER. Stat UA ordered, will follow up on cultures. Unsure if anything will grow as patient already did receive Rocephin and Zithromax in the ER along with a dose of nitrofurantoin yesterday COPD (chronic obstructive pulmonary disease) (Chronic) J44.9 With acute exacerbation Continue Duonebs Current tobacco user, every day smoker of cigarettes Lead to be counseled on smoking cessation. Though per [id number], patient not interested in quitting smoking at this time. Depression (Chronic) F32.9 Resume home medication Hypertension (Chronic) I10 Stable. Will continue home medications and monitor Rash and nonspecific skin eruption (Chronic) R21 Unsure of etiology. Her ccvfpu-hs-syj, patient has had this rash for over a year, she has tried to creams though she is unsure what kind of cream is. She will bring the cream by tomorrow. She may have any MRSA colonization. Will go ahead and order a nasal swab to test along with hibiscus cleanse twice a day. DVT prophylaxis: Plavix, home medication GI prophylaxis: Protonix, home medication Diet: Heart healthy Disposition: Monitor on the floor, Pending symptomatic improvement Discharge Plan: Home - Advance Directives Does patient have a Living Will: Yes Does patient have a Durable POA for Healthcare: Yes
[2018-05-12] MEDS: LEVALBUTEROL 1.25 MG/3 ML NEB NEB SCH (19:18)
[2018-05-12] MEDS ORDERED: VITAMIN E 400 UNIT PO SCH (21:00)
[2018-05-12] MEDS ORDERED: HOME MED 1 EA UNK (Donepezil Hcl [Donepezil Hcl] 10 MG) PO SCH (21:00)
[2018-05-12] MEDS: DONEPEZIL HCL 5 MG TAB PO SCH (21:08)
[2018-05-12] MEDS: VITAMIN E 400 IU CAP PO SCH (21:08)
[2018-05-12 23:16] LABS: Urine Appearance CLEAR; Urine Bilirubin NEGATIVE (NEG); Urine Blood NEGATIVE (NEG); Urine Color YELLOW; Urine Glucose NEGATIVE (NEG); Urine Protein NEGATIVE (NEG); Urine Specific Gravity 1.015 (1.005-1.030); Urine Urobilinogen 0.2 mg/dL (0.2-1.0)
[2018-05-12] MEDS: CEFTRIAXONE/SWI 1gm 1 GM/10 ML SYR IVP SCH (23:20)
[2018-05-12 23:24] LABS: Urine Microscopic Reflex ORDER UMIC
[2018-05-12] MEDS: AZITHROMYCIN IV 500 MG in NA CHLORIDE 0.9% 250 ML IVPB SCH (23:31)
[2018-05-12 23:46] LABS: Urine Bacteria <20 /HPF (<20); Urine Culture Reflex Order REFLEXED; Urine RBC NONE SEEN /HPF (NONE SEEN)
[2018-05-13] MEDS: IPRATROPIUM BROM 0.5MG/2.5ML NEB SCH ×4 (01:00→20:00)
[2018-05-13] MEDS: LEVALBUTEROL 1.25 MG/3 ML NEB NEB SCH ×4 (01:00→20:00)
[2018-05-13 05:30] LABS: Absolute Lymphocytes (CBC) 0.5 K/uL (0.7-4.9); Absolute Monocytes 0.4 K/uL (0.1-1.3); Absolute Neutrophil 11.6 K/uL (1.8-8.0); Basophils % 0.2 % (0-1.3); Eosinophils % 0.2 % (0-4.4); Lymphocytes % 3.7 % (15.3-44.8); MPV 7.5 fL (7.6-11.3); Monocytes % 3.2 % (3.3-12.3); RBC Red Blood Cell Count 3.26 M/uL (3.86-4.86)
[2018-05-13 05:44] LABS: Albumin 2.6 g/dL (3.4-5.0); Bilirubin Total 0.2 mg/dL (0.2-1.0); Potassium 4.2 mmol/L (3.5-5.1); Protein, Total 6.2 g/dL (6.4-8.2)
[2018-05-13 06:48] LABS: Magnesium 2.3 mg/dL (1.8-2.4); Phosphorus 3.1 mg/dL (2.5-4.9)
[2018-05-13] MEDS: ENOXAPARIN 40 MG/0.4 ML SQ SCH (09:00)
[2018-05-13] MEDS ORDERED: CEFTRIAXONE/SWI 1gm 1 GM/10 ML SYR IVP SCH ×2 (09:00)
[2018-05-13] MEDS ORDERED: HOME MED 1 EA UNK (Clopidogrel Bisulfate [Clopidogrel] 75 MG) PO SCH (09:00)
[2018-05-13] MEDS ORDERED: HOME MED 1 EA UNK (Duloxetine Hcl [Duloxetine Hcl] 60 MG) PO SCH (09:00)
[2018-05-13] MEDS: AZITHROMYCIN IV 500 MG in NA CHLORIDE 0.9% 250 ML IVPB SCH (09:14)
[2018-05-13] MEDS: CEFTRIAXONE/SWI 1gm 1 GM/10 ML SYR IVP SCH (09:14)
[2018-05-13] MEDS: PANTOPRAZOLE 40MG TABLET PO SCH (09:15)
[2018-05-13] MEDS: FENOFIBRATE 160 MG TAB PO SCH (09:15)
[2018-05-13] MEDS: VITAMIN E 400 IU CAP PO SCH ×2 (09:16→20:40)
[2018-05-13] MEDS: DOCUSATE NA 100 MG CAP PO SCH (09:16)
[2018-05-13] MEDS: AMLODIPINE 10 MG TAB PO SCH (09:16)
[2018-05-13] MEDS: MONTELUKAST 10 MG TAB PO SCH (09:16)
[2018-05-13] MEDS: CLOPIDOGREL 75 MG TABLET PO SCH (09:16)
[2018-05-13] MEDS: MULTIVITAMIN TAB PO SCH (09:16)
[2018-05-13] MEDS: DULOXETINE 30 MG CAP PO SCH (09:16)
[2018-05-13] MEDS: ACETAMINOPHEN 500 MG TAB PO PRN ×2 (09:23→15:12)
--- NOTE | 2018-05-13 10:53 | P.PN ---
Subjective Date of Service: 05/13/18 Chief Complaint: Shortness of breath Subjective: Improving Patient seen and examined at bedside. Ogbvpn-[id number] at bedside. Chart reviewed and case discussed with nursing staff. Patient more awake and alert this morning. Reports drastic improvement breathing. Continues to be on 2 L nasal cannula. Per patient, she does have oxygen at home so she does not use it during the day. She always see oxygen at night, even though she was told she does needed throughout the day. No acute events overnight noted. Patient concerned that she is not receiving her home dose of [place] here in the hospital. Review of Systems 10-point ROS is otherwise unremarkable Physical Examination - Vital Signs Temperature: 98.3 F Blood Pressure: 171/74 Pulse: 100 Respirations: 22 Pulse Ox (%): 91 - Physical Exam General: Alert, In no apparent distress, Oriented x3 HEENT: Atraumatic, PERRLA, EOMI Neck: Supple, JVD not distended Respiratory: Expiratory wheezes, Inspiratory wheezes Cardiovascular: Regular rate/rhythm, Normal S1 S2 Gastrointestinal: Normal bowel sounds, No tenderness Musculoskeletal: No tenderness Integumentary: No rashes Neurological: Normal speech, Normal tone, Normal affect Lymphatics: No axilla or inguinal lymphadenopathy - Studies Microbiology Data (last 24 hrs): 05/12/18 09:40 Blood - Blood Anaerobic Blood Culture - Final Assessment And Plan - Current Problems (Diagnosis) (1) Sepsis Onset Date: 05/13/18 Current Visit: Yes Status: Acute Qualifiers: Sepsis type: sepsis due to unspecified organism Qualified Code(s): A41.9 - Sepsis, unspecified organism (2) COPD (chronic obstructive pulmonary disease) Onset Date: 05/13/18 Current Visit: Yes Status: Chronic Qualifiers: COPD type: COPD with acute exacerbation Qualified Code(s): J44.1 - Chronic obstructive pulmonary disease with (acute) exacerbation (3) Pneumonia Onset Date: 05/13/18 Current Visit: Yes Status: Acute Qualifiers: Pneumonia type: due to unspecified organism Laterality: left Lung location: lower lobe of lung Qualified Code(s): J18.1 - Lobar pneumonia, unspecified organism (4) UTI (urinary tract infection) Onset Date: 05/13/18 Current Visit: Yes Status: Acute Qualifiers: Urinary tract infection type: site unspecified Hematuria presence: without hematuria Qualified Code(s): N39.0 - Urinary tract infection, site not specified (5) Hypertension Onset Date: 05/13/18 Current Visit: Yes Status: Chronic Qualifiers: Hypertension type: essential hypertension Qualified Code(s): I10 - Essential (primary) hypertension (6) Rash and nonspecific skin eruption Onset Date: 05/13/18 Current Visit: Yes Status: Chronic (7) Depression Onset Date: 05/13/18 Current Visit: Yes Status: Chronic Qualifiers: Depression Type: unspecified Qualified Code(s): F32.9 - Major depressive disorder, single episode, unspecified (8) Tobacco abuse Onset Date: 05/13/18 Current Visit: Yes Status: Acute (9) Chronic lower back pain Current Visit: Yes Status: Acute Qualifiers: Back pain laterality: bilateral Sciatica presence: without sciatica Qualified Code(s): M54.5 - Low back pain; G89.29 - Other chronic pain - Plan This is an 88-year-old female with: Sepsis (Acute) A41.9 Improving Afebrile overnight, no longer tachycardic and leukocytosis improving Possible sources include: UTI, pneumonia, skin/rash Continue maintenance IV fluids at 75 cc/hour. IV antibiotics with Rocephin and azithromycin, day #2. Follow up blood cultures. Urine cultures not done in the ER, ordered. Will follow up Pneumonia (Acute) J18.9 Continue IV antibiotics as above UTI (urinary tract infection) (Acute) N39.0 Continue IV antibiotics as above. No UA done in the ER. Stat UA ordered, culture still pending . Unsure if anything will grow as patient already did receive Rocephin and Zithromax in the ER along with a dose of nitrofurantoin yesterday. COPD (chronic obstructive pulmonary disease) (Chronic) J44.9 With acute exacerbation Continue Duonebs IV steroids Current tobacco user, every day smoker of cigarettes Counseled on smoking cessation. Patient states that she is not interested in smoking cessation at this time. Depression (Chronic) F32.9 Resume home medication Hypertension (Chronic) I10 Stable. Will continue home medications and monitor Rash and nonspecific skin eruption (Chronic) R21 Unsure of etiology. Her sjndyl-ps-nla, patient has had this rash for over a year, she has tried to creams though she is unsure what kind of cream is. She will bring the cream by ivisorrow. She may have any MRSA colonization. Nasal swab pending. Chronic lower back pain Patient on [place] at home, will resume home medications. Physical therapy ordered. DVT prophylaxis: Plavix, home medication GI prophylaxis: Protonix, home medication Diet: Heart healthy Disposition: Monitor on the floor, Pending symptomatic improvement. Possible discharge home in 24-40 hr pending clinical improvement Time Spent Managing PTS Care (In Minutes): 40
[2018-05-13] MEDS: METHYLPREDNISOLONE 40 MG INJ IV SCH ×2 (11:39→16:51)
[2018-05-13] MEDS: HYDROCODONE/APAP 7.5/325 MG TAB PO PRN ×2 (11:39→19:40)
[2018-05-13] MEDS: GABAPENTIN 300 MG CAP PO SCH ×2 (14:53→20:40)
[2018-05-13] MEDS: DONEPEZIL HCL 5 MG TAB PO SCH (20:40)
[2018-05-14] MEDS: METHYLPREDNISOLONE 40 MG INJ IV SCH ×3 (00:53→17:42)
[2018-05-14] MEDS: IPRATROPIUM BROM 0.5MG/2.5ML NEB SCH ×4 (02:00→20:00)
[2018-05-14] MEDS: LEVALBUTEROL 1.25 MG/3 ML NEB NEB SCH ×4 (02:00→20:00)
[2018-05-14 05:09] LABS: Absolute Lymphocytes (CBC) 0.3 K/uL (0.7-4.9); Absolute Monocytes 0.1 K/uL (0.1-1.3); Absolute Neutrophil 7.7 K/uL (1.8-8.0); Basophils % 0.3 % (0-1.3); Hematocrit 32.2 % (36.0-45.0); Lymphocytes % 3.5 % (15.3-44.8); MPV 7.9 fL (7.6-11.3); Monocytes % 1.1 % (3.3-12.3); RBC Red Blood Cell Count 3.43 M/uL (3.86-4.86)
[2018-05-14 05:55] LABS: Albumin 2.9 g/dL (3.4-5.0); Bilirubin Total 0.1 mg/dL (0.2-1.0); Potassium 4.8 mmol/L (3.5-5.1)
--- NOTE | 2018-05-14 07:56 | RAD REPORT ---
EXAM DESCRIPTION: RAD - Chest Single View - 05/14/2018 6:42 am CLINICAL HISTORY: Pneumonia COMPARISON: May 12 ; March 18, 2018 chest film, April [address] chest TECHNIQUE: AP portable chest image was obtained 0637 hours . FINDINGS: Lung volumes are low. Fibrotic lung pattern seen. No new mass or consolidation. The suspec ernst pneumonitis/atypical pneumonia findings have not changed. Heart size is normal range. No new or p rogressive vascular engorgement. No pneumothorax or large pleural effusion. IMPRESSION: Interstitial edema or infiltrate pattern superimposed on fibrosis has shown no improveme nt from prior day imaging.
[2018-05-14] MEDS: ENOXAPARIN 40 MG/0.4 ML SQ SCH (09:00)
[2018-05-14] MEDS: VITAMIN E 400 IU CAP PO SCH ×2 (09:41→21:03)
[2018-05-14] MEDS: DOCUSATE NA 100 MG CAP PO SCH (09:41)
[2018-05-14] MEDS: PANTOPRAZOLE 40MG TABLET PO SCH (09:41)
[2018-05-14] MEDS: GABAPENTIN 300 MG CAP PO SCH ×3 (09:41→21:03)
[2018-05-14] MEDS: DULOXETINE 30 MG CAP PO SCH (09:41)
[2018-05-14] MEDS: MONTELUKAST 10 MG TAB PO SCH (09:41)
[2018-05-14] MEDS: AMLODIPINE 10 MG TAB PO SCH (09:41)
[2018-05-14] MEDS: CLOPIDOGREL 75 MG TABLET PO SCH (09:42)
[2018-05-14] MEDS: CEFTRIAXONE/SWI 1gm 1 GM/10 ML SYR IVP SCH (09:42)
[2018-05-14] MEDS: AZITHROMYCIN IV 500 MG in NA CHLORIDE 0.9% 250 ML IVPB SCH (09:42)
[2018-05-14] MEDS: MULTIVITAMIN TAB PO SCH (09:47)
[2018-05-14] MEDS: FENOFIBRATE 160 MG TAB PO SCH (09:48)
[2018-05-14] MEDS: ACETAMINOPHEN 500 MG TAB PO PRN (09:48)
--- NOTE | 2018-05-14 15:39 | P.PN ---
Subjective Date of Service: 05/14/18 Chief Complaint: Shortness of breath Subjective: No C/O voiced, Improving Patient seen and examined at bedside. Brother at bedside. Chart reviewed and case discussed with nursing staff. AOX3, in no acute disterss. Still wheezing. MARYCHUY Reports drastic improvement breathing. Continues to be on 2 L nasal cannula. Per patient, she does have oxygen at home so she does not use it during the day. She always see oxygen at night, even though she was told she does needed throughout the day. Review of Systems 10-point ROS is otherwise unremarkable Physical Examination - Vital Signs Temperature: 98.3 F Blood Pressure: 172/74 Pulse: 92 Respirations: 19 Pulse Ox (%): 92 - Physical Exam General: Alert, In no apparent distress, Oriented x3 HEENT: Atraumatic, PERRLA, EOMI Neck: Supple, JVD not distended Respiratory: Diminished, Expiratory wheezes, Inspiratory wheezes Cardiovascular: Regular rate/rhythm, Normal S1 S2 Gastrointestinal: Normal bowel sounds, No tenderness Musculoskeletal: No tenderness Integumentary: No rashes Neurological: Normal speech, Normal tone, Normal affect Lymphatics: No axilla or inguinal lymphadenopathy - Studies Microbiology Data (last 24 hrs): 05/12/18 09:40 Blood - Blood Anaerobic Blood Culture - Final Assessment And Plan - Current Problems (Diagnosis) (1) Sepsis Onset Date: 05/13/18 Current Visit: Yes Status: Acute Qualifiers: Sepsis type: sepsis due to unspecified organism Qualified Code(s): A41.9 - Sepsis, unspecified organism (2) COPD (chronic obstructive pulmonary disease) Onset Date: 05/13/18 Current Visit: Yes Status: Chronic Qualifiers: COPD type: COPD with acute exacerbation Qualified Code(s): J44.1 - Chronic obstructive pulmonary disease with (acute) exacerbation (3) Pneumonia Onset Date: 05/13/18 Current Visit: Yes Status: Acute Qualifiers: Pneumonia type: due to unspecified organism Laterality: left Lung location: lower lobe of lung Qualified Code(s): J18.1 - Lobar pneumonia, unspecified organism (4) UTI (urinary tract infection) Onset Date: 05/13/18 Current Visit: Yes Status: Acute Qualifiers: Urinary tract infection type: site unspecified Hematuria presence: without hematuria Qualified Code(s): N39.0 - Urinary tract infection, site not specified (5) Hypertension Onset Date: 05/13/18 Current Visit: Yes Status: Chronic Qualifiers: Hypertension type: essential hypertension Qualified Code(s): I10 - Essential (primary) hypertension (6) Rash and nonspecific skin eruption Onset Date: 05/13/18 Current Visit: Yes Status: Chronic (7) Depression Onset Date: 05/13/18 Current Visit: Yes Status: Chronic Qualifiers: Depression Type: unspecified Qualified Code(s): F32.9 - Major depressive disorder, single episode, unspecified (8) Tobacco abuse Onset Date: 05/13/18 Current Visit: Yes Status: Acute (9) Chronic lower back pain Current Visit: Yes Status: Acute Qualifiers: Back pain laterality: bilateral Sciatica presence: without sciatica Qualified Code(s): M54.5 - Low back pain; G89.29 - Other chronic pain - Plan This is an 88-year-old female with: Sepsis (Acute) A41.9 Resolved Afebrile overnight, no longer tachycardic and leukocytosis resolved Possible sources include: UTI, pneumonia, skin/rash Continue maintenance IV fluids at 75 cc/hour. IV antibiotics with Rocephin and azithromycin, day #3. Cultures negative to date Pneumonia (Acute) J18.9 Continue IV antibiotics as above UTI (urinary tract infection) (Acute) N39.0 Continue IV antibiotics as above. No UA done in the ER. Stat UA ordered, culture still pending . Unsure if anything will grow as patient already did receive Rocephin and Zithromax in the ER along with a dose of nitrofurantoin yesterday. COPD (chronic obstructive pulmonary disease) (Chronic) J44.9 With acute exacerbation Continue Duonebs IV steroids Current tobacco user, every day smoker of cigarettes Counseled on smoking cessation. Patient states that she is not interested in smoking cessation at this time. Depression (Chronic) F32.9 Resume home medication Hypertension (Chronic) I10 Stable. Will continue home medications and monitor Rash and nonspecific skin eruption (Chronic) R21 Unsure of etiology. Her unqeor-ca-[id number], patient has had this rash for over a year, she has tried to steroid creams without much help. Nasal swab negative. Will try bactroban to the area. Skin very thin in the area. Chronic lower back pain Patient on [place] at home, will resume home medications. Physical therapy ordered. DVT prophylaxis: Plavix, home medication GI prophylaxis: Protonix, home medication Diet: Heart healthy Disposition: Monitor on the floor, Pending symptomatic improvement. Possible discharge home in 24 hr pending clinical improvement Discharge Plan: Home Plan to discharge in: 24 Hours
[2018-05-14] MEDS: HYDROCODONE/APAP 7.5/325 MG TAB PO PRN (17:49)
[2018-05-14] MEDS ORDERED: DIPHENHYDRAMINE 25 MG TAB/CAP PO PRN (20:06)
[2018-05-14] MEDS: DONEPEZIL HCL 5 MG TAB PO SCH (21:04)
[2018-05-14] MEDS: MUPIROCIN 2% OINT 22GM TUBE TOP SCH (21:06)
[2018-05-15] MEDS: METHYLPREDNISOLONE 40 MG INJ IV SCH ×2 (00:33→09:44)
[2018-05-15] MEDS: IPRATROPIUM BROM 0.5MG/2.5ML NEB SCH ×2 (03:30→09:09)
[2018-05-15] MEDS: LEVALBUTEROL 1.25 MG/3 ML NEB NEB SCH ×2 (03:30→09:09)
[2018-05-15 04:59] LABS: Absolute Lymphocytes (CBC) 0.4 K/uL (0.7-4.9); Absolute Monocytes 0.1 K/uL (0.1-1.3); Absolute Neutrophil 6.4 K/uL (1.8-8.0); Basophils % 0.1 % (0-1.3); Hematocrit 33.1 % (36.0-45.0); Lymphocytes % 5.8 % (15.3-44.8); MPV 7.9 fL (7.6-11.3); Monocytes % 1.8 % (3.3-12.3); RBC Red Blood Cell Count 3.58 M/uL (3.86-4.86)
[2018-05-15 05:17] LABS: Albumin 3.1 g/dL (3.4-5.0); Bilirubin Total 0.2 mg/dL (0.2-1.0); Potassium 4.7 mmol/L (3.5-5.1); Protein, Total 6.9 g/dL (6.4-8.2)
[2018-05-15] MEDS: PANTOPRAZOLE 40MG TABLET PO SCH (07:55)
[2018-05-15 08:53] VITALS: BP 153/84; TEMP 97.1
[2018-05-15] MEDS: MUPIROCIN 2% OINT 22GM TUBE TOP SCH (09:00)
--- NOTE | 2018-05-15 09:17 | P.DS ---
Admission Date: 05/12/18 Discharge Date: 05/15/18 Disposition: ROUTINE DISCHARGE Discharge Condition: GOOD Reason for Admission: Shortness of breath - Problems (1) Sepsis Onset Date: 05/13/18 Current Visit: Yes Status: Resolved Qualifiers: Sepsis type: sepsis due to unspecified organism Qualified Code(s): A41.9 - Sepsis, unspecified organism (2) COPD (chronic obstructive pulmonary disease) Onset Date: 05/13/18 Current Visit: Yes Status: Chronic Qualifiers: COPD type: COPD with acute exacerbation Qualified Code(s): J44.1 - Chronic obstructive pulmonary disease with (acute) exacerbation (3) Pneumonia Onset Date: 05/13/18 Current Visit: Yes Status: Acute Qualifiers: Pneumonia type: due to unspecified organism Laterality: left Lung location: lower lobe of lung Qualified Code(s): J18.1 - Lobar pneumonia, unspecified organism (4) UTI (urinary tract infection) Onset Date: 05/13/18 Current Visit: Yes Status: Inactive Qualifiers: Urinary tract infection type: site unspecified Hematuria presence: without hematuria Qualified Code(s): N39.0 - Urinary tract infection, site not specified (5) Hypertension Onset Date: 05/13/18 Current Visit: Yes Status: Chronic Qualifiers: Hypertension type: essential hypertension Qualified Code(s): I10 - Essential (primary) hypertension (6) Rash and nonspecific skin eruption Onset Date: 05/13/18 Current Visit: Yes Status: Chronic (7) Depression Onset Date: 05/13/18 Current Visit: Yes Status: Chronic Qualifiers: Depression Type: unspecified Qualified Code(s): F32.9 - Major depressive disorder, single episode, unspecified (8) Tobacco abuse Onset Date: 05/13/18 Current Visit: Yes Status: Chronic (9) Chronic lower back pain Current Visit: Yes Status: Chronic Qualifiers: Back pain laterality: bilateral Sciatica presence: without sciatica Qualified Code(s): M54.5 - Low back pain; G89.29 - Other chronic pain Brief History of Present Illness: This is an 88-year-old female with history of hypertension, COPD, current smoker admitted for shortness of breath and fever. Per her axpvai-ni-orr, patient this morning while getting out of bed, could not stand up and started sliding down. She was also having wheezing and shortness of breath. Sister-in- law called the EMS, and patient was brought to the ER via EMS. In the ER, patient's initial vitals were blood pressure 144/57, heart rate of 107, respirations of 32 and 98% on room air. She was given Xopenex, Rocephin and Zithromax. Her lactic acid was negative, but she did have elevated pro calcitonin with elevated WBC count. She responded well to the breathing treatments. She was found to have possible left lower lobe pneumonia versus pneumonitis versus pulmonary fibrosis on chest x-ray. At the time of my exam, patient was sleepy, but arousable. She was on the nasal cannula and in no acute distress. Of note, patient was started on nitrofurantoin yesterday for a UTI. She has taken only 1 dose of it so far. At baseline, patient uses a walker at home to get to the bathroom and to go outside to smoke. Other than that, her yuvyls-uy-qge states that she does not really go out too much. When she does walk more than around the house, she gets short of breath very quickly. She continues to smoke approximately 1 pack a day. Sister also states that she has had this rash on her chest for about a year but she continues to periodically scratch. She has created a pretty big wound on the chest. She has also tried 2 tubes of some sort of cream, sister in law is not sure of the name of the cream but will bring it tomorrow. Hospital Course: Patient was admitted for shortness of breath with sepsis. Sepsis protocol was followed, she was not started on maintenance IV fluids. IV antibiotics were started with Rocephin and azithromycin. Blood cultures and urine cultures remained negative throughout the stay. She was also diagnosed with pneumonia, IV antibiotics with Rocephin and azithromycin were started. She received a total of 4 days of IV antibiotics. Again, her cultures remained negative throughout the stay. She was also given breathing treatments and IV steroids. Her symptoms improved with these interventions. She was counseled on smoking cessation and encouraged to stop smoking. The patient states that she does not want to stop smoking at this time. She also does have oxygen at home, the patient was not using during the day as she was supposed to. Encouraged patient to use oxygen during the day as well as night. She also had a nonspecific rash on her chest for which she has tried steroid cream in the past. On nasal swab was done to rule out MRSA colonization. Bactroban was applied to the area. It was also noted that her skin is very thin in the area. Per patient and brother at bedside prior to discharge, the primary care physician has tried a cream that has helped but they are unsure what the name of the cream is. She patient has run out of this medication. Encouraged patient to follow up with the primary care physician for refill on this medication/local cream. Otherwise she remained stable throughout the stay. At the time of discharge, patient was hemodynamically stable, alert oriented x3 , ambulating without any concerns. She was satting well on 1-2 L of oxygen, her wheezing and symptoms had drastically improved. She will be discharged home on oral antibiotics, oral steroids and Bactroban cream to apply to the rash until she said that appointment with primary care physician in about 1 week. Vital Signs/Physical Exam: Temp Pulse Resp BP Pulse Ox 97.1 F 75 20 153/84 H 95 05/15/18 08:00 05/15/18 08:00 05/15/18 08:00 05/15/18 08:00 05/15/18 08:00 General: Alert, In no apparent distress HEENT: Atraumatic, PERRLA, EOMI Neck: Supple, JVD not distended Respiratory: Clear to auscultation bilaterally, Normal air movement Cardiovascular: Regular rate/rhythm, Normal S1 S2 Gastrointestinal: Normal bowel sounds, No tenderness Musculoskeletal: No tenderness Integumentary: No rashes Neurological: Normal speech, Normal tone, Normal affect Lymphatics: No axilla or inguinal lymphadenopathy Laboratory Data at Discharge: WBC 6.9 K/uL (4.3-10.9) D 05/15/18 04:38 Hgb 10.9 g/dL (12.0-15.0) L 05/15/18 04:38 Hct 33.1 % (36.0-45.0) L 05/15/18 04:38 Plt Count 333 K/uL (152-406) 05/15/18 04:38 PT 12.3 SECONDS (9.5-12.5) 05/12/18 08:40 INR 1.04 05/12/18 08:40 APTT 29.8 SECONDS (24.3-36.9) 05/12/18 08:40 Sodium 141 mmol/L (136-145) 05/15/18 04:38 Potassium 4.7 mmol/L (3.5-5.1) 05/15/18 04:38 BUN 38 mg/dL (7-18) H 05/15/18 04:38 Creatinine 1.12 mg/dL (0.55-1.3) 05/15/18 04:38 Glucose 151 mg/dL (74-106) H 05/15/18 04:38 Phosphorus 3.1 mg/dL (2.5-4.9) 05/13/18 04:47 Magnesium 2.3 mg/dL (1.8-2.4) 05/13/18 04:47 Total Bilirubin 0.2 mg/dL (0.2-1.0) 05/15/18 04:38 AST 15 U/L (15-37) 05/15/18 04:38 ALT 19 U/L (12-78) 05/15/18 04:38 Alkaline Phosphatase 114 U/L (45-117) 05/15/18 04:38 Lipase 74 U/L (73-393) 05/12/18 08:40 Home Medications: Albuterol Sulfate [Proair Hfa] 1 puff IH DAILY 05/12/18 Amlodipine Besylate 10 mg PO DAILY 05/12/18 Clopidogrel Bisulfate [Clopidogrel] 75 mg PO DAILY 05/12/18 Docusate Sodium [Stool Softener] 100 mg PO DAILY 05/12/18 Donepezil HCl 10 mg PO BEDTIME 05/12/18 Duloxetine HCl 60 mg PO DAILY 05/12/18 Fenofibrate Nanocrystallized [Fenofibrate] 145 mg PO DAILY 05/12/18 Gabapentin 600 mg PO TID 05/12/18 Hydrocodone Bit/Acetaminophen [Hydrocodon-Acetaminoph 7.5-325] 1 tab PO QIDP PRN 05/12/18 Montelukast [Singulair*] 10 mg PO DAILY 05/12/18 Multivitamin [Daily Multiple Vitamin] 1 tab PO DAILY 05/12/18 Pantoprazole Sodium 40 mg PO DAILY 05/12/18 Vitamin E 400 unit PO BID 05/12/18 Amox/Clavulanate [Augmentin 875-125 Tab] 875 mg PO BID #8 tab 05/15/18 Azithromycin Tab [Zithromax*] 250 mg PO DAILY #4 tab 05/15/18 Mupirocin Oint [Bactroban 2% Ointment*] 1 appl TOP BID #1 tube 05/15/18 predniSONE [Prednisone] 20 mg PO BID #10 tablet 05/15/18 New Medications: Amox/Clavulanate [Augmentin 875-125 Tab] 875 mg PO BID #8 tab Azithromycin Tab [Zithromax*] 250 mg PO DAILY #4 tab Mupirocin Oint [Bactroban 2% Ointment*] 1 appl TOP BID #1 tube predniSONE [Prednisone] 20 mg PO BID #10 tablet Patient Discharge Instructions: Please follow up with the primary care physician in 1 week. Please return to the emergency room for worsening symptoms Diet: AHA Activity: Ad neptali Time spent managing pt's care (in minutes): 55
[2018-05-15] MEDS: HYDROCODONE/APAP 7.5/325 MG TAB PO PRN (09:43)
[2018-05-15] MEDS: AZITHROMYCIN IV 500 MG in NA CHLORIDE 0.9% 250 ML IVPB SCH (09:43)
[2018-05-15] MEDS: AMLODIPINE 10 MG TAB PO SCH (09:44)
[2018-05-15] MEDS: CEFTRIAXONE/SWI 1gm 1 GM/10 ML SYR IVP SCH (09:44)
[2018-05-15] MEDS: DOCUSATE NA 100 MG CAP PO SCH (09:44)
[2018-05-15] MEDS: CLOPIDOGREL 75 MG TABLET PO SCH (09:45)
[2018-05-15] MEDS: MONTELUKAST 10 MG TAB PO SCH (09:45)
[2018-05-15] MEDS: MULTIVITAMIN TAB PO SCH (09:45)
[2018-05-15] MEDS: DULOXETINE 30 MG CAP PO SCH (09:45)
[2018-05-15] MEDS: VITAMIN E 400 IU CAP PO SCH (09:45)
[2018-05-15] MEDS: FENOFIBRATE 160 MG TAB PO SCH (09:45)
[2018-05-15] MEDS: GABAPENTIN 300 MG CAP PO SCH (09:45)
[2018-05-15 10:18] VITALS: O2SAT 96
== END 2018-05-15 11:23 | disposition home or self-care (01) | DRG 871 ==
LOC: ER 08:27 → ERHOLD 11:03 → 2ND 13:21
PROVIDERS: ADMIT Family Medicine; ATTEND Family Medicine
DX: A41.9 Sepsis, unspecified organism (principal); J18.1 Lobar pneumonia, unspecified organism; J44.1 Chronic obstructive pulmonary disease with (acute) exacerbation; N39.0 Urinary tract infection, site not specified; R21 Rash and other nonspecific skin eruption; F17.210 Nicotine dependence, cigarettes, uncomplicated; M54.5 Low back pain; G89.29 Other chronic pain; I10 Essential (primary) hypertension; E78.5 Hyperlipidemia, unspecified; Z99.81 Dependence on supplemental oxygen
CPT/HCPCS: 36415; 71045; 80048; 80053; 80076; 81003; 81015; 82550; 82553; 82962; 83605; 83690; 83735; 83880; 84100; 84145; 84484; 85025; 85610; 85730; 87040; 87070; 87077; 87086; 87088; 87186; 93005; 94640; 94760; 96365; 96375; 97163; 99285; J0456; J0696; J1650; J2920

== ENCOUNTER 2018-05-26 11:13 | Emergency (ER) | payer OTHER ==
--- NOTE | 2018-05-26 13:00 | RAD REPORT ---
EXAM DESCRIPTION: RAD - Chest Pa And Lat (2 Views) - 05/26/2018 12:52 pm CLINICAL HISTORY: Shortness of breath, productive cough COMPARISON: May 14, 2018 TECHNIQUE: PA and lateral views of the chest were obtained. FINDINGS: The lungs are fibrotic as a baseline. No new mass or consolidation. Small bilateral pleura l effusions are present. Heart size is normal and central vasculature is within normal limits. No pneumothorax. No acute bony finding noted. No aortic abnormality. IMPRESSION: Chronic interstitial lung disease is present not substantially different from comparison . Interstitial edema and infiltrate can be masked by the chronic pattern. Small bilateral pleural effusions.
[2018-05-26 14:09] LABS: Absolute Lymphocytes (CBC) 0.5 K/uL (0.7-4.9); Absolute Monocytes 0.3 K/uL (0.1-1.3); Absolute Neutrophil 9.3 K/uL (1.8-8.0); Basophils % 0.6 % (0-1.3); Eosinophils % 1.1 % (0-4.4); Hematocrit 31.2 % (36.0-45.0); Lymphocytes % 4.6 % (15.3-44.8); MPV 7.4 fL (7.6-11.3); Monocytes % 2.6 % (3.3-12.3); RBC Red Blood Cell Count 3.33 M/uL (3.86-4.86)
[2018-05-26 14:13] LABS: Protime INR 1.16
[2018-05-26 14:32] LABS: ALT/SGPT 24 U/L (12-78); AST/SGOT 15 U/L (15-37); Alkaline Phosphatase 103 U/L (45-117); BUN Blood Urea Nitrogen 20 mg/dL (7-18); Bicarbonate 33 mmol/L (21-32); Bilirubin Direct 0.1 mg/dL (0-0.2); Bilirubin Total 0.3 mg/dL (0.2-1.0); Creatine Phosphokinase 25 U/L (26-192); Glucose Level 138 mg/dL (74-106); Potassium 4.1 mmol/L (3.5-5.1); Protein, Total 6.7 g/dL (6.4-8.2); Sodium Level 142 mmol/L (136-145); Troponin (Emerg Dept Use Only) < 0.02 ng/mL (0.0-0.045)
[2018-05-26 14:43] LABS: Blood Morphology Comment NOTED (NOT SEEN); Hypochromasia 1+; Macrocytosis 1+; Platelet Estimate INCR; Stomatocytes 1+; Urine White Blood Cell Casts OK
[2018-05-26 14:56] LABS: Urine Blood NEGATIVE (NEG); Urine Glucose NEGATIVE (NEG); Urine Protein NEGATIVE (NEG); Urine Specific Gravity 1.015 (1.005-1.030); Urine pH 5.5 (5.0-7.0)
--- NOTE | 2018-05-26 15:07 | ER ---
Nurse's Notes [facility] Name: Clifton Wagoner Age: 88 yrs Sex: Female : 1930 Arrival Date: 05/26/2018 Time: 11:13 Bed 20 Private MD: Unknown, Unknown Diagnosis: Chronic obstructive pulmonary disease, unspecified Presentation: 05/26 11:23 Presenting complaint: Patient states: "i started feeling short of breath this morning tw2 when i woke up, i am coughing and coughing up some nasty looking shit, alex yvonne brown colored". Transition of care: patient was not received from another setting of care. Onset of symptoms was May 26, 2018. Risk Assessment: Do you want to hurt yourself or someone else? Patient reports no desire to harm self or others. Initial Sepsis Screen: Does the patient meet any 2 criteria? No. Patient's initial sepsis screen is negative. Does the patient have a suspected source of infection? No. Patient's initial sepsis screen is negative. Care prior to arrival: None. 11:23 Method Of Arrival: Wheelchair tw2 11:23 Acuity: RENETTA 3 tw2 Triage Assessment: 11:27 General: Appears in no apparent distress. Behavior is calm, cooperative, appropriate tw2 for age. Pain: Denies pain. Respiratory: Reports shortness of breath at rest cough that is productive, Onset: The symptoms/episode began/occurred this morning, the patient has moderate shortness of breath. Historical: - Allergies: 11:27 STRIPTOMYCIN; tw2 - Home Meds: 11:27 amlodipine 10 mg tab 1 tab once daily [Active]; levofloxacin 500 mg Oral tab 1 tab once tw2 daily [Active]; methylprednisolone 4 mg Oral DsPk [Active]; Centrum Oral [Active]; clopidogrel 75 mg Oral tab 1 tab once daily [Active]; cranberry Oral [Active]; donepezil 10 mg Oral tab 1 tab once daily [Active]; duloxetine 60 mg Oral cpDR 1 cap once daily [Active]; fenofibrate Oral [Active]; gabapentin 600 mg Oral tab 1 tab 3 times per day [Active]; montelukast 10 mg Oral tab 1 tab once daily [Active]; [place] 10-325 mg Oral tab 1 tab every 6 hours [Active]; pantoprazole 40 mg Oral TbEC 1 tab once daily [Active]; ProAir HFA inhalation [Active]; Stool Softener Oral [Active]; vitamin E Oral [Active]; - PMHx: 11:27 Asthma; Diabetes - NIDDM; 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 - Social history:: Smoking status: . - Ebola Screening: : Patient denies travel to an Ebola-affected area in the 21 days before illness onset. Screenin:41 Abuse screen: Denies threats or abuse. Denies injuries from another. Nutritional aj1 screening: No deficits noted. Tuberculosis screening: No symptoms or risk factors identified. Assessment: 12:41 General: Appears in no apparent distress. uncomfortable, Behavior is calm, cooperative, aj1 appropriate for age. Pain: Denies pain. Neuro: Level of Consciousness is awake, alert, obeys commands. Cardiovascular: Denies chest pain, Patient's skin is warm and dry. Rhythm is regular. Respiratory: Reports shortness of breath at rest cough that is productive, persistent Airway is patent Respiratory effort is even, labored, with retractions, Respiratory pattern is regular, symmetrical, Breath sounds with wheezes bilaterally. the patient has moderate shortness of breath. GI: No signs and/or symptoms were reported involving the gastrointestinal system. : No signs and/or symptoms were reported regarding the genitourinary system. EENT: No signs and/or symptoms were reported regarding the EENT system. Derm: No signs and/or symptoms reported regarding the dermatologic system. Skin is pink, warm \\T\\ dry. normal. Musculoskeletal: No signs and/or symptoms reported regarding the musculoskeletal system. Circulation, motion, and sensation intact. 13:45 Reassessment: Patient appears in no apparent distress at this time. No changes from aj1 previously documented assessment. Patient and/or family updated on plan of care and expected duration. Pain level reassessed. Patient is alert, oriented x 3, equal unlabored respirations, skin warm/dry/pink. 14:48 Reassessment: Patient appears in no apparent distress at this time. No changes from aj1 previously documented assessment. Patient and/or family updated on plan of care and expected duration. Pain level reassessed. Patient is alert, oriented x 3, equal unlabored respirations, skin warm/dry/pink. Vital Signs: 11:22 BP 147 / 58; Pulse 74; Resp 19; Temp 97.9(TE); Pulse Ox 88% on R/A; Weight 78.02 kg tw2 (R); Height 5 ft. 9 in. (175.26 cm); Pain 0/10; 12:41 BP 162 / 75; Pulse 72; Resp 28; Pulse Ox 94% on 2 lpm NC; aj1 13:45 BP 158 / 65; Pulse 75; Resp 19; Pulse Ox 95% on 2 lpm NC; aj1 14:49 BP 155 / 53; Pulse 71; Resp 16; Pulse Ox 95% on 2 lpm NC; aj1 11:22 Body Mass Index 25.40 (78.02 kg, 175.26 cm) tw2 11:22 pt states she used o2 via nc at 2l at home, pt placed on o2 at 2l in triage noted 92% tw2 ED Course: 11:13 Patient arrived in ED. ag5 11:14 Unknown, Unknown is Private Physician. ag5 11:24 Triage completed. tw2 11:24 Arm band placed on. tw2 12:10 [facility]aga [facility]C [facility] snw 12:10 Frederic Buck MD is Attending Physician. snw 12:34 Rose Ashby, RN is Primary Nurse. aj1 12:41 Patient has correct armband on for positive identification. Bed in low position. Call aj1 light in reach. Side rails up X 1. monitoring engineer on. Pulse ox on. NIBP on. 12:41 No provider procedures requiring assistance completed. aj1 12:50 X-ray completed. Patient tolerated procedure well. Patient moved to radiology via jb2 wheelchair. Patient moved back from radiology. 12:53 Chest Pa And Lat (2 Views) XRAY In Process Unspecified. EDMS 13:07 EKG done, by geotechnicial properties technician. reviewed by Shirin VEGA. 3 14:14 Inserted saline lock: 22 gauge in left antecubital area, using aseptic technique. Blood ss collected. 14:28 Urine collected: clean catch specimen, clear. mh5 14:41 Sputum Culture Sent. mh5 14:42 SPU TIUM CULTURE SENT. mh5 14:43 CBC Smear Scan Sent. mh5 14:43 Urine Microscopic Only Sent. mh5 14:48 Urine Dipstick--Ancillary (enter results) Sent. [facility] 14:48 Urine Microscopic Only Sent. [facility] 16:12 IV discontinued, intact, bleeding controlled, No redness/swelling at site. Pressure ss dressing applied. Administered Medications: 15:04 Drug: Albuterol - atroVENT (3:1) (2.5 mg - 0.5 mg) 3 ml Route: Nebulizer; aj1 16:11 Follow up: Response: No adverse reaction ss 16:05 Drug: Decadron 8 mg Route: PO; ss 16:11 Follow up: Response: Medication administered at discharge. ss 16:10 Not Given (Other Intervention Used): Decadron - Dexamethasone 10 mg IVP once ss Outcome: 15:07 Discharge ordered by MD. snw 16:12 Discharged to home via wheelchair, with family. ss 16:12 Condition: good 16:12 Discharge instructions given to patient, family, Instructed on discharge instructions, follow up and referral plans. medication usage, Demonstrated understanding of instructions, follow-up care, medications, Prescriptions given X 2. 16:13 Patient left the ED. ss Signatures: Dispatcher [employer] EDMS Rose Ashby RN RN aj1 Shirin Arteaga, REFLEXOLOGIST-C REFLEXOLOGIST-Csnw Brayden Richardson jb2 Madelyn Olvera RN RN ss Wise, Tara, RN RN 2 Taya [place] [facility] Zen[place] Weller 3 Alyssa Arvizu [facility]
--- NOTE | 2018-05-26 15:08 | EDPHYS ---
Physician Documentation [facility] Name: Clifton Wagoner Age: 88 yrs Sex: Female : 1930 Arrival Date: 05/26/2018 Time: 11:13 Bed 20 Private MD: Unknown, Unknown ED Physician Frederic Buck HPI: 05/26 15:00 This 88 yrs old Female presents to ER via Wheelchair with complaints of snw Shortness Of Breath. 15:00 The patient has shortness of breath at rest. Onset: The symptoms/episode began/occurred snw off and on since dx pneumonia/hospitalization 2 weeks ago. Duration: The symptoms are continuous. The patient's shortness of breath is aggravated by nebulizer broke last pm, pt does not wear her oxygen as directed. Associated signs and symptoms: Pertinent negatives: chest pain, fever, hemoptysis, vomiting. Severity of symptoms: At their worst the symptoms were moderate. The patient has experienced similar episodes in the past, multiple times, chronically. The patient has been recently seen by a physician: The patient has been recently been admitted at [facility], was discharged a couple of weeks ago. Historical: - Allergies: 11:27 STRIPTOMYCIN; tw2 - Home Meds: 11:27 amlodipine 10 mg tab 1 tab once daily [Active]; levofloxacin 500 mg Oral tab 1 tab once tw2 daily [Active]; methylprednisolone 4 mg Oral DsPk [Active]; Centrum Oral [Active]; clopidogrel 75 mg Oral tab 1 tab once daily [Active]; cranberry Oral [Active]; donepezil 10 mg Oral tab 1 tab once daily [Active]; duloxetine 60 mg Oral cpDR 1 cap once daily [Active]; fenofibrate Oral [Active]; gabapentin 600 mg Oral tab 1 tab 3 times per day [Active]; montelukast 10 mg Oral tab 1 tab once daily [Active]; [place] 10-325 mg Oral tab 1 tab every 6 hours [Active]; pantoprazole 40 mg Oral TbEC 1 tab once daily [Active]; ProAir HFA inhalation [Active]; Stool Softener Oral [Active]; vitamin E Oral [Active]; - PMHx: 11:27 Asthma; Diabetes - NIDDM; 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 - Social history:: Smoking status: . - Ebola Screening: : Patient denies travel to an Ebola-affected area in the 21 days before illness onset. ROS: 15:00 Constitutional: Negative for fever, chills, and weight loss, Eyes: Negative for injury, snw pain, redness, and discharge, ENT: Negative for injury, pain, and discharge, Neck: Negative for injury, pain, and swelling, Cardiovascular: Negative for chest pain, palpitations, and edema, Abdomen/GI: Negative for abdominal pain, nausea, vomiting, diarrhea, and constipation, Back: Negative for injury and pain, : Negative for injury, bleeding, discharge, and swelling, MS/Extremity: Negative for injury and deformity, Skin: Negative for injury, rash, and discoloration, Neuro: Negative for headache, weakness, numbness, tingling, and seizure. 15:00 Respiratory: Positive for cough, with rust-colored sputum, shortness of breath. Exam: 14:54 Head/Face: Normocephalic, atraumatic. Eyes: Pupils equal round and reactive to light, snw extra-ocular motions intact. Lids and lashes normal. Conjunctiva and sclera are non-icteric and not injected. Cornea within normal limits. Periorbital areas with no swelling, redness, or edema. ENT: Nares patent. No nasal discharge, no septal abnormalities noted. Tympanic membranes are normal and external auditory canals are clear. Oropharynx with no redness, swelling, or masses, exudates, or evidence of obstruction, uvula midline. Mucous membranes moist. Neck: Trachea midline, no thyromegaly or masses palpated, and no cervical lymphadenopathy. Supple, full range of motion without nuchal rigidity, or vertebral point tenderness. No Meningismus. Chest/axilla: Normal chest wall appearance and motion. Nontender with no deformity. No lesions are appreciated. Cardiovascular: Regular rate and rhythm with a normal S1 and S2. No gallops, murmurs, or rubs. Normal PMI, no JVD. No pulse deficits. Abdomen/GI: Soft, non-tender, with normal bowel sounds. No distension or tympany. No guarding or rebound. No evidence of tenderness throughout. Back: No spinal tenderness. No costovertebral tenderness. Full range of motion. Skin: Warm, dry with normal turgor. Normal color with no rashes, no lesions, and no evidence of cellulitis. Healing abraded area to central chest MS/ Extremity: Pulses equal, no cyanosis. Neurovascular intact. Full, normal range of motion. Neuro: Awake and alert, GCS 15, oriented to person, place, time, and situation. Cranial nerves II-XII grossly intact. Motor strength 5/5 in all extremities. Sensory grossly intact. Cerebellar exam normal. Normal gait. Psych: Awake, alert, with orientation to person, place and time. Behavior, mood, and affect are within normal limits. 14:54 Constitutional: The patient appears alert, awake, audibly wheezing 14:54 Respiratory: mild respiratory distress is noted, Respirations: prolonged exhalation, pursed lip breathing, that is mild, shallow respirations, tachypnea, Breath sounds: wheezing: is heard diffusely, Pt has Oxygen at home, wears it only at night but is supposed to wear it all the time. Vital Signs: 11:22 BP 147 / 58; Pulse 74; Resp 19; Temp 97.9(TE); Pulse Ox 88% on R/A; Weight 78.02 kg tw2 (R); Height 5 ft. 9 in. (175.26 cm); Pain 0/10; 12:41 BP 162 / 75; Pulse 72; Resp 28; Pulse Ox 94% on 2 lpm NC; aj1 13:45 BP 158 / 65; Pulse 75; Resp 19; Pulse Ox 95% on 2 lpm NC; aj1 14:49 BP 155 / 53; Pulse 71; Resp 16; Pulse Ox 95% on 2 lpm NC; aj1 11:22 Body Mass Index 25.40 (78.02 kg, 175.26 cm) tw2 11:22 pt states she used o2 via nc at 2l at home, pt placed on o2 at 2l in triage noted 92% tw2 MDM: 14:39 Patient medically screened. snw 15:09 Data reviewed: vital signs, nurses notes. Data interpreted: Pulse oximetry: on 3L(s) snw per nasal canula, is 93 %. Interpretation: acceptable. Counseling: I had a detailed discussion with the patient and/or guardian regarding: the historical points, exam findings, and any diagnostic results supporting the discharge/admit diagnosis, the presence of at least one elevated blood pressure reading (>120/80) during this emergency department visit, lab results, the need for outpatient follow up, for definitive care, to return to the emergency department if symptoms worsen or persist or if there are any questions or concerns that arise at home, smoking cessation. Special discussion: Based on the history and exam findings, there is no indication for further emergent testing or inpatient evaluation. I discussed with the patient/guardian the need to see the primary care provider for further evaluation of the symptoms. 05/26 13:04 Order name: Sputum Culture snw 05/26 13:04 Order name: Basic Metabolic Panel snw 05/26 13:04 Order name: Blood Culture Adult (2) snw 05/26 13:04 Order name: CBC with Diff w 05/26 13:04 Order name: CPK snw 05/26 13:04 Order name: Lactate; Complete Time: 14:38 snw 05/26 13:04 Order name: LFT's; Complete Time: 14:38 snw 05/26 13:04 Order name: Procalcitonin; Complete Time: 15:10 snw 05/26 13:04 Order name: Protime (+inr); Complete Time: 14:20 snw 05/26 13:04 Order name: Ptt, Activated; Complete Time: 14:20 snw 05/26 13:04 Order name: Troponin (emerg Dept Use Only); Complete Time: 14:38 snw 05/26 13:05 Order name: Sputum Culture EDOR 05/26 13:05 Order name: Basic Metabolic Panel; Complete Time: 14:38 EDMS 05/26 13:05 Order name: Blood Culture EDOR 05/26 11:25 Order name: Chest Pa And Lat (2 Views) XRAY; Complete Time: 13:02 snw 05/26 13:04 Order name: Cardiac monitoring; Complete Time: 13:11 snw 05/26 13:04 Order name: EKG - Nurse/Tech; Complete Time: 13:11 snw 05/26 13:04 Order name: IV Saline Lock - Large Bore; Complete Time: 14:40 sn05/26 13:04 Order name: Labs collected and sent; Complete Time: 14:00 w 05/26 13:04 Order name: O2 Per Protocol; Complete Time: 13:11 snw 02/14 13:04 Order name: O2 Sat Monitoring; Complete Time: 13:11 snw 05/26 13:04 Order name: Urine Dipstick-Ancillary (obtain specimen); Complete Time: 14:44 snw 05/26 13:05 Order name: CBC with Automated Diff; Complete Time: 14:53 EDMS 05/26 13:05 Order name: Creatine Phosphokinase; Complete Time: 14:38 EDMS 05/26 14:19 Order name: CBC Smear Scan; Complete Time: 14:53 EDMS 05/26 14:42 Order name: Urine Microscopic Only; Complete Time: 15:30 mh5 05/26 14:47 Order name: Urine Dipstick--Ancillary (enter results); Complete Time: 14:58 em1 Administered Medications: 15:04 Drug: Albuterol - atroVENT (3:1) (2.5 mg - 0.5 mg) 3 ml Route: Nebulizer; aj1 16:11 Follow up: Response: No adverse reaction ss 16:05 Drug: Decadron 8 mg Route: PO; ss 16:11 Follow up: Response: Medication administered at discharge. ss 16:10 Not Given (Other Intervention Used): Decadron - Dexamethasone 10 mg IVP once ss Disposition: 05/27 07:08 Co-signature as Attending Physician, Frederic Buck MD I agree with the assessment and kdr plan of care. Disposition: 05/26/18 15:07 Discharged to Home. Impression: Chronic obstructive pulmonary disease, unspecified. - Condition is Stable. - Discharge Instructions: Chronic Bronchitis, Chronic Obstructive Pulmonary Disease, How to Use an Inhaler. - Prescriptions for Albuterol Sulfate 2.5 mg /3 mL (0.083 %) Inhalation Solution for Nebulization - inhale 1 unit by NEBULIZATION route every 8 hours As needed; 1 box. Albuterol Sulfate 90 mcg/actuation - inhale 1-2 puff by INHALATION route every 4-6 hours; 1 Inhaler. - Medication Reconciliation Form, Thank You Letter, Antibiotic Education, Prescription Opioid Use form. - Follow up: Private Physician; When: 2 - 3 days; Reason: Recheck today's complaints, Continuance of care, Re-evaluation by your physician. Follow up: Emergency Department; When: As needed; Reason: Worsening of condition. - Problem is an acute exacerbation. - Symptoms are unchanged. Signatures: Dispatcher [employer] Rose Han, RN RN aj1 Frederic Buck MD MD kdr Therrien, Shelly, HEAD OF D[employer]ITAL ADVERTISING & INTEGRATION-C HEAD OF [employer]VERTISING [employer]TE[employer]ATION-Madelyn Bah RN RN ss Na Ocampo RN RN tw2 Corrections: (The following items were deleted from the chart) 05/26 16:13 15:07 05/26/2018 15:07 Discharged to Home. Impression: Chronic obstructive pulmonary ss disease, unspecified. Condition is Stable. Forms are Medication Reconciliation Form, Thank You Letter, Antibiotic Education, Prescription Opioid Use. Follow up: Private Physician; When: 2 - 3 days; Reason: Recheck today's complaints, Continuance of care, Re-evaluation by your physician. Follow up: Emergency Department; When: As needed; Reason: Worsening of condition. Problem is an acute exacerbation. Symptoms are unchanged. snw
[2018-05-26] MEDS ORDERED: ALBUTEROL 2.5 MG/3 ML NEB SOL ONE (15:09)
[2018-05-26] MEDS ORDERED: DEXAMETHASONE 4 MG/ML VIAL ONE (15:09)
[2018-05-26] MEDS ORDERED: IPRATROPIUM BROM 0.5MG/2.5ML ONE (15:09)
[2018-05-26 15:22] LABS: Urine Bacteria <20 /HPF (<20); Urine Culture Reflex Order NOT NEEDED
[2018-05-26] MEDS ORDERED: DEXAMETHASONE 4 MG TAB ONE (15:58)
[2018-05-26 16:47] VITALS: TEMP 97.9
[2018-05-26 16:50] VITALS: O2SAT 95
[2018-05-26 16:51] VITALS: BP 155/53
--- NOTE | 2018-05-26 16:57 | EKG ---
Test Date: 2018-05-26 Test Time: 13:04:17 Hash Slinger: LISA MEASUREMENT RESULTS: Intervals: Rate: 70 MS: 140 QRSD: 124 QT: 432 QTc: 466 [place]: P: 47 MS: 140 QRS: 18 T: 20 INTERPRETIVE STATEMENTS: Normal sinus rhythm Possible Left atrial enlargement Incomplete right bundle branch block Abnormal ECG Compared to ECG 05/12/2018 08:37:43 Sinus tachycardia no longer present Right bundle-branch block no longer present Myocardial infarct finding no longer present Electronically Signed On 05-26-18 16:56:35 BODY WELDER by Bandar Nguyễn
== END 2018-05-26 16:13 | disposition home or self-care (01) ==
LOC: ER 11:13
DX: J44.9 Chronic obstructive pulmonary disease, unspecified (principal); I10 Essential (primary) hypertension; E11.9 Type 2 diabetes mellitus without complications; J45.909 Unspecified asthma, uncomplicated; Z88.3 Allergy status to other anti-infective agents; Z99.81 Dependence on supplemental oxygen
CPT/HCPCS: 36415; 71046; 80048; 80076; 81003; 81015; 82550; 83605; 84145; 84484; 85025; 85610; 85730; 87040; 87070; 87205; 93005; 94640; 99285

== ENCOUNTER 2018-08-14 11:01 | Observation (INO) | payer OTHER ==
--- OUTSIDE RECORDS SUMMARY | 2018-08-14 11:03 | XMS REPORT ---
:1930 [facility] Address [address] [place] [address] Dr. Liao [address] [place] [id number] Care Team Providers Name Role Phone Unavailable Unavailable Unavailable Problems This patient has no known problems. Allergies, Adverse Reactions, Alerts This patient has no known allergies or adverse reactions. Medications This patient has no known medications.
[2018-08-14] MEDS ORDERED: NA CHLORIDE 0.9% 1,000 ML ONE (12:07)
[2018-08-14 12:28] LABS: Absolute Lymphocytes (CBC) 0.9 K/uL (0.7-4.9); Absolute Monocytes 0.5 K/uL (0.1-1.3); Absolute Neutrophil 5.4 K/uL (1.8-8.0); Hematocrit 35.1 % (36.0-45.0); Lymphocytes % 12.6 % (15.3-44.8); MPV 6.9 fL (7.6-11.3); Monocytes % 7.2 % (3.3-12.3); RBC Red Blood Cell Count 3.97 M/uL (3.86-4.86)
[2018-08-14 12:29] LABS: Protime INR 1.1
--- NOTE | 2018-08-14 12:32 | RAD REPORT ---
EXAM DESCRIPTION: RAD - Chest Single View - 08/14/2018 12:01 pm CLINICAL HISTORY: Cough, COPD history COMPARISON: July 15 TECHNIQUE: AP portable chest image was obtained 1159 hours . FINDINGS: No focal consolidation or mass. Lung volumes are low. Interstitial markings are prominent but not substantially different. Severity of chronic disease could mask early interstitial edema or i nfiltrate. Heart and vasculature are normal. No measurable pleural effusion and no pneumothorax. No a cute bone findings seen. Patient likely has chronic right shoulder rotator cuff tear. No acute aortic findings suspected. IMPRESSION: Chronic interstitial lung disease similar to comparison.
[2018-08-14] MEDS ORDERED: IPRATROPIUM BROM 0.5MG/2.5ML ONE (12:33)
[2018-08-14] MEDS ORDERED: METHYLPREDNISOLONE 125 MG INJ ONE (12:33)
[2018-08-14] MEDS ORDERED: CEFTRIAXONE/SWI 1gm 1 GM/10 ML SYR ONE (12:33)
[2018-08-14] MEDS ORDERED: LEVALBUTEROL 1.25 MG/3 ML NEB ONE (12:33)
--- NOTE | 2018-08-14 12:34 | RAD REPORT ---
EXAM DESCRIPTION: CT - Head Brain Wo Cont - 08/14/2018 12:25 pm CLINICAL HISTORY: Transient alteration of awareness, somnolence COMPARISON: None. TECHNIQUE: Axial 5 mm thick images of the head were obtained without IV contrast. All CT scans are performed using dose optimization technique as appropriate and may include automated exposure control or mA/KV adjustment according to patient size. FINDINGS: No intracranial hemorrhage, mass, edema or shift of mid-line structures. No acute infarcti on changes seen. No abnormal extra-axial fluid collections. Underlying atrophy changes are present. T here is significant chronic ischemic change in each frontal lobe chronic ischemic changes extending i nto each basal ganglia and the left external capsule/ insular cortex region. Ventricles are in propor tion to volume loss. Mastoid air cells and visualized portions of the paranasal sinuses are clear. No acute bony findings. IMPRESSION: No hemorrhage, mass or acute intracranial finding. Atrophy and chronic ischemic changes are present. Chronic ischemic change can potentially mask nonhem orrhagic acute CVA.
[2018-08-14 12:44] LABS: ALT/SGPT 15 U/L (12-78); AST/SGOT 20 U/L (15-37); Albumin 3.6 g/dL (3.4-5.0); Alkaline Phosphatase 88 U/L (45-117); BUN Blood Urea Nitrogen 14 mg/dL (7-18); Bicarbonate 27 mmol/L (21-32); Bilirubin Direct < 0.1 mg/dL (0-0.2); Bilirubin Total 0.3 mg/dL (0.2-1.0); Glucose Level 92 mg/dL (74-106); Lipase 108 U/L (73-393); NT PRO-BNP 412 pg/mL (<450); Potassium 4.1 mmol/L (3.5-5.1); Protein, Total 7.8 g/dL (6.4-8.2); Sodium Level 141 mmol/L (136-145); Troponin (Emerg Dept Use Only) < 0.02 ng/mL (0.0-0.045)
[2018-08-14] MEDS ORDERED: ONDANSETRON 4 MG/2 ML VIAL ONE (12:51)
--- NOTE | 2018-08-14 12:52 | ER ---
Nurse's Notes [facility] Name: Clifton Wagoner Age: 88 yrs Sex: Female : 1930 Arrival Date: 08/14/2018 Time: 11:02 Bed 19 Private MD: Diagnosis: Weakness;Chronic obstructive pulmonary disease with (acute) exacerbation;Altered mental status, unspecified;Pulmonary fibrosis, unspecified Presentation: 08/14 11:05 Presenting complaint: Child states: "She hasn't been eating a lot and she's been aj1 sleeping a lot and she doesn't want to go anywhere and that isn't normal for her. She's been cold a lot and she's had a cough" Reports that these symptoms have been going on for the past week. Denies fever. Denies pain. Transition of care: patient was not received from another setting of care. Onset of symptoms was August 07, 2017. Risk Assessment: Do you want to hurt yourself or someone else? Patient reports no desire to harm self or others. Initial Sepsis Screen: Does the patient meet any 2 criteria? No. Patient's initial sepsis screen is negative. Does the patient have a suspected source of infection? Yes: Productive cough/pneumonia. Care prior to arrival: None. 11:05 Method Of Arrival: Wheelchair aj1 11:05 Acuity: RENETTA 3 aj1 Triage Assessment: 11:09 General: Appears in no apparent distress. uncomfortable, Behavior is calm, cooperative, aj1 appropriate for age. Pain: Denies pain. Neuro: Level of Consciousness is awake, alert, obeys commands, Oriented to person, place, time, situation. Cardiovascular: Patient's skin is warm and dry. Respiratory: Airway is patent Respiratory effort is even, unlabored, Respiratory pattern is regular, symmetrical. Historical: - Allergies: 11:09 STRIPTOMYCIN; aj1 - Home Meds: 11: amlodipine 10 mg tab 1 tab once daily [Active]; Centrum Oral [Active]; clopidogrel 75 aj1 mg Oral tab 1 tab once daily [Active]; cranberry Oral [Active]; donepezil 10 mg Oral tab 1 tab once daily [Active]; duloxetine 60 mg Oral cpDR 1 cap once daily [Active]; fenofibrate Oral [Active]; gabapentin 600 mg Oral tab 1 tab 3 times per day [Active]; levofloxacin 500 mg Oral tab 1 tab once daily [Active]; methylprednisolone 4 mg Oral DsPk [Active]; montelukast 10 mg Oral tab 1 tab once daily [Active]; [place] 10-325 mg Oral tab 1 tab every 6 hours [Active]; pantoprazole 40 mg Oral TbEC 1 tab once daily [Active]; ProAir HFA inhalation [Active]; Stool Softener Oral [Active]; vitamin E Oral [Active]; - PMHx: 11:09 Asthma; Diabetes - NIDDM; 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 - Social history:: Smoking status: Patient uses tobacco products, smokes one-half pack cigarettes per day. - Ebola Screening: : Patient denies travel to an Ebola-affected area in the 21 days before illness onset. Screenin:47 Abuse screen: Denies threats or abuse. Nutritional screening: No deficits noted. em Tuberculosis screening: No symptoms or risk factors identified. Fall Risk None identified. Assessment: 12:10 General: Appears in no apparent distress. comfortable, Behavior is calm, cooperative, em Denies fever. Pain: Denies pain. Neuro: Level of Consciousness is awake, alert, obeys commands, Oriented to person, place, time, situation, Moves all extremities. Gait is steady, Speech is normal. Cardiovascular: Denies chest pain, Capillary refill < 3 seconds Patient's skin is warm and dry. Respiratory: Reports shortness of breath cough that is non-productive, Airway is patent Respiratory effort is even, unlabored, Respiratory pattern is regular, symmetrical, Breath sounds with wheezes bilaterally. Denies pain with respiration. Derm: Skin is intact, is thin, Skin is pink, warm \\T\\ dry. Musculoskeletal: Capillary refill < 3 seconds, Range of motion: intact in all extremities. 12:15 General: The previous assessment is accurate, call light remains within reach. Family sg at bedside with patient. . 13:30 Reassessment: Patient appears in no apparent distress at this time. Patient and/or em family updated on plan of care and expected duration. Pain level reassessed. Patient is alert, oriented x 3, equal unlabored respirations, skin warm/dry/pink. wheezing has improved slightly, pt wheeled to restroom via wheelchair, tolerated well. 13:42 Reassessment: Dr. Nelson at bedside. em 14:18 Reassessment: Patient appears in no apparent distress at this time. given lunch tray at em this time. 15:21 Reassessment: Patient appears in no apparent distress at this time. Patient and/or em family updated on plan of care and expected duration. Pain level reassessed. Patient is alert, oriented x 3, equal unlabored respirations, skin warm/dry/pink. pending room assignment, supervisor housecleaner reports there are no rooms available at this time, pending floor discharges. 16:55 Reassessment: Patient appears in no apparent distress at this time. Patient and/or em family updated on plan of care and expected duration. Pain level reassessed. Patient is alert, oriented x 3, equal unlabored respirations, skin warm/dry/pink. family upset that there is not a room assignment, states, "she can get breathing treatments at home instead of paying for this hospital stay" nurse notified, supervisor housecleaner notified. Vital Signs: 11:09 BP 152 / 71; Pulse 73; Resp 18; Temp 98.1; Pulse Ox 97% on R/A; Weight 77.11 kg (R); aj1 Height 5 ft. 9 in. (175.26 cm) (R); Pain 0/10; 12:40 BP 179 / 82; Pulse 79; Resp 22; Pulse Ox 100% on R/A; Pain 0/10; em 14:00 BP 163 / 84; Pulse 85; Resp 18; Pulse Ox 99% on R/A; em 15:30 BP 174 / 71; Pulse 86; Resp 18; Pulse Ox 99% on R/A; em 17:30 BP 177 / 96; Pulse 85; Resp 24; Temp 98.1(O); Pulse Ox 95% on 2 lpm NC; Pain 0/10; em 11:09 Body Mass Index 25.10 (77.11 kg, 175.26 cm) aj1 ED Course: 11:02 Patient arrived in ED. as 11:06 Triage completed. aj1 11:09 Arm band placed on Patient placed in waiting room, Patient notified of wait time. aj 11:41 Armando Barragan MD is Attending Physician. [facility] 11:46 Bellamy, Shorty, TYPIST is Primary Nurse. em 11:47 Patient has correct armband on for positive identification. Bed in low position. Call em light in reach. Side rails up X2. Adult w/ patient. sales and marketing executive on. Pulse ox on. NIBP on. 12:03 XRAY Chest (1 view) In Process Unspecified. EDMS 12:25 CT completed. Patient tolerated procedure well. Patient moved back from CT. kw1 12:25 CT Head Brain wo Cont In Process Unspecified. EDMS 12:33 EKG done, by ED staff, reviewed by Armando Barragan MD. em1 12:50 Fran Nelson MD is Hospitalizing Provider. [facility] 13:00 No provider procedures requiring assistance completed. Initial lab(s) drawn, by me, em sent to lab. Inserted saline lock: 20 gauge in right antecubital area, using aseptic technique. Blood collected. 17:31 Patient admitted, IV remains in place. em Administered Medications: 12:30 Drug: SOLU-Medrol 125 mg Route: IVP; Site: right antecubital; ss 13:32 Follow up: Response: No adverse reaction em 12:35 Drug: Xopenex 3.75 mg Route: Inhalation; em 13:34 Follow up: Response: No adverse reaction; Marked relief of symptoms em 12:35 Drug: AtroVENT Aerosol 0.5 mg Route: Inhalation; em 13:34 Follow up: Response: No adverse reaction; Marked relief of symptoms em 12:37 Drug: NS 0.9% 1000 ml Route: IV; Rate: 125 ml/hr; Site: right antecubital; em 17:30 Follow up: IV Status: Infusion continued upon admission; IV Intake: 500ml em 12:40 Drug: Rocephin - (cefTRIAXone) 1 grams Route: IVPB; Infused Over: 30 mins; Site: right ss antecubital; 13:35 Follow up: Response: No adverse reaction; IV Status: Completed infusion; IV Intake: 10mlem 13:20 Drug: Zithromax 500 mg Route: IVPB; Infused Over: 1 hrs; Site: right antecubital; em 19:16 Follow up: IV Status: Completed infusion; IV Intake: 250ml em 13:49 Not Given (Patient Refused): Zofran 4 mg IVP once; over 2 minutes em 13:49 Drug: Aspirin 81 mg Route: PO; em 14:20 Follow up: Response: No adverse reaction em Intake: 13:35 IV: 10ml; Total: 10ml. em 17:30 IV: 500ml; Total: 510ml. em 19:16 IV: 250ml; Total: 760ml. em Outcome: 12:51 Decision to Hospitalize by Provider. perez 17:28 Admitted to Tele accompanied by tech, family with patient, via wheelchair, room 210, em with oxygen, with chart, Report called to MAUDE Norris 17:28 Condition: good 17:28 Instructed on the need for admit, Demonstrated understanding of instructions. 17:31 Patient left the ED. em Signatures: Dispatcher [employer] EDRose Casillas RN RN aj1 Duncan Foster RN RN sg Anderson, Corey, MD MD cha Munoz, Edgar, TYPIST TYPIST sharad Carolina, Dayana Carolina, Aj em1 Madelyn Olvera RN RN ss Wilhelm, Kimberly kw1 Corrections: (The following items were deleted from the chart) 17:28 16:55 Reassessment: Patient appears in no apparent distress at this time. Patient em and/or family updated on plan of care and expected duration. Pain level reassessed. Patient is alert, oriented x 3, equal unlabored respirations, skin warm/dry/pink. family upset that there is not a room assignment, states, "she can get breathing treatments at home instead of paying charge for this hospital stay" nurse notified, supervisor housecleaner notified em
--- NOTE | 2018-08-14 12:52 | EDPHYS ---
Physician Documentation [facility] Name: Clifton Wagoner Age: 88 yrs Sex: Female : 1930 Arrival Date: 08/14/2018 Time: 11:02 Bed 19 Private MD: ARTIS Physician Armando Barragan HPI: 08/14 12:00 This 88 yrs old Female presents to ER via Wheelchair with complaints of perez Altered Mental Status. 12:00 The patient presents with confusion, decreased mental status. perez 12:02 Onset: The symptoms/episode began/occurred 2 day(s) ago. perez 12:02 The patient's shortness of breath has no apparent modifying factors. The patient or perez guardian reports cough, that is intermittent, difficulty breathing, flu symptoms, myalgias. Modifying factors: The symptoms are alleviated by nothing. the symptoms are aggravated by hot environment. Possible causes: unknown. Historical: - Allergies: 11:09 STRIPTOMYCIN; aj1 - Home Meds: 11:09 amlodipine 10 mg tab 1 tab once daily [Active]; Centrum Oral [Active]; clopidogrel 75 aj1 mg Oral tab 1 tab once daily [Active]; cranberry Oral [Active]; donepezil 10 mg Oral tab 1 tab once daily [Active]; duloxetine 60 mg Oral cpDR 1 cap once daily [Active]; fenofibrate Oral [Active]; gabapentin 600 mg Oral tab 1 tab 3 times per day [Active]; levofloxacin 500 mg Oral tab 1 tab once daily [Active]; methylprednisolone 4 mg Oral DsPk [Active]; montelukast 10 mg Oral tab 1 tab once daily [Active]; [place] 10-325 mg Oral tab 1 tab every 6 hours [Active]; pantoprazole 40 mg Oral TbEC 1 tab once daily [Active]; ProAir HFA inhalation [Active]; Stool Softener Oral [Active]; vitamin E Oral [Active]; - PMHx: 11:09 Asthma; Diabetes - NIDDM; 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 - Social history:: Smoking status: Patient uses tobacco products, smokes one-half pack cigarettes per day. - Ebola Screening: : Patient denies travel to an Ebola-affected area in the 21 days before illness onset. ROS: 12:02 Constitutional: Negative for fever, chills, and weight loss, Eyes: Negative for injury, perez pain, redness, and discharge, ENT: Negative for injury, pain, and discharge, Neck: Negative for injury, pain, and swelling, Cardiovascular: Negative for chest pain, palpitations, and edema, Abdomen/GI: Negative for abdominal pain, nausea, vomiting, diarrhea, and constipation, Back: Negative for injury and pain, : Negative for injury, bleeding, discharge, and swelling, MS/Extremity: Negative for injury and deformity, Skin: Negative for injury, rash, and discoloration, Neuro: Negative for headache, weakness, numbness, tingling, and seizure, Psych: Negative for depression, anxiety, suicide ideation, homicidal ideation, and hallucinations, Allergy/Immunology: Negative for hives, rash, and allergies, Endocrine: Negative for neck swelling, polydipsia, polyuria, polyphagia, and marked weight changes, Hematologic/Lymphatic: Negative for swollen nodes, abnormal bleeding, and unusual bruising. 12:02 Respiratory: Positive for cough, shortness of breath, wheezing, inspiratory, expiratory. 12:02 Neuro: Positive for altered mental status, weakness. Exam: 12:02 Constitutional: This is a well developed, well nourished patient who is awake, alert, perez and in no acute distress. Head/Face: Normocephalic, atraumatic. Eyes: Pupils equal round and reactive to light, extra-ocular motions intact. Lids and lashes normal. Conjunctiva and sclera are non-icteric and not injected. Cornea within normal limits. Periorbital areas with no swelling, redness, or edema. ENT: Nares patent. No nasal discharge, no septal abnormalities noted. Tympanic membranes are normal and external auditory canals are clear. Oropharynx with no redness, swelling, or masses, exudates, or evidence of obstruction, uvula midline. Mucous membranes moist. Neck: Trachea midline, no thyromegaly or masses palpated, and no cervical lymphadenopathy. Supple, full range of motion without nuchal rigidity, or vertebral point tenderness. No Meningismus. Chest/axilla: Normal chest wall appearance and motion. Nontender with no deformity. No lesions are appreciated. Cardiovascular: Regular rate and rhythm with a normal S1 and S2. No gallops, murmurs, or rubs. Normal PMI, no JVD. No pulse deficits. Abdomen/GI: Soft, non-tender, with normal bowel sounds. No distension or tympany. No guarding or rebound. No evidence of tenderness throughout. Back: No spinal tenderness. No costovertebral tenderness. Full range of motion. Female : Normal external genitalia. Skin: Warm, dry with normal turgor. Normal color with no rashes, no lesions, and no evidence of cellulitis. MS/ Extremity: Pulses equal, no cyanosis. Neurovascular intact. Full, normal range of motion. Psych: Awake, alert, with orientation to person, place and time. Behavior, mood, and affect are within normal limits. 12:02 Respiratory: mild respiratory distress is noted, Respirations: normal, Breath sounds: decreased breath sounds, wheezing: inspiratory expiratory Vital Signs: 11:09 BP 152 / 71; Pulse 73; Resp 18; Temp 98.1; Pulse Ox 97% on R/A; Weight 77.11 kg (R); aj1 Height 5 ft. 9 in. (175.26 cm) (R); Pain 0/10; 12:40 BP 179 / 82; Pulse 79; Resp 22; Pulse Ox 100% on R/A; Pain 0/10; em 14:00 BP 163 / 84; Pulse 85; Resp 18; Pulse Ox 99% on R/A; em 15:30 BP 174 / 71; Pulse 86; Resp 18; Pulse Ox 99% on R/A; em 17:30 BP 177 / 96; Pulse 85; Resp 24; Temp 98.1(O); Pulse Ox 95% on 2 lpm NC; Pain 0/10; em 11:09 Body Mass Index 25.10 (77.11 kg, 175.26 cm) [facility] MDM: 11:41 Patient medically screened. [facility] 12:04 Data reviewed: vital signs, nurses notes, lab test result(s), EKG, radiologic studies, [facility] CT scan, plain films. 08/14 11:46 Order name: Basic Metabolic Panel; Complete Time: 14:06 [facility] 08/14 11:46 Order name: CBC with Diff; Complete Time: 12:38 [facility] 08/14 11:46 Order name: LFT's; Complete Time: 14:06 [facility] 08/14 11:46 Order name: Magnesium; Complete Time: 14:06 [facility] 08/14 11:46 Order name: NT PRO-BNP; Complete Time: 14:06 [facility] 08/14 11:46 Order name: PT-INR; Complete Time: 12:38 [facility] 08/14 11:46 Order name: Troponin (emerg Dept Use Only); Complete Time: 14:06 [facility] 08/14 11:46 Order name: XRAY Chest (1 view); Complete Time: 12:38 [facility] 08/14 11:46 Order name: Lipase; Complete Time: 14:06 [facility] 08/14 11:46 Order name: Blood Culture Adult (2) [facility] 08/14 11:46 Order name: Procalcitonin; Complete Time: 14:06 [facility] 08/14 11:46 Order name: Urine Culture [facility] 08/14 11:58 Order name: CT Head Brain wo Cont; Complete Time: 12:38 [facility] 08/14 13:52 Order name: Urine Dipstick--Ancillary (enter results); Complete Time: 14:06 em 08/14 11:46 Order name: EKG; Complete Time: 11:48 [facility] 08/14 11:46 Order name: Cardiac monitoring; Complete Time: 12:44 [facility] 08/14 11:46 Order name: EKG - Nurse/Tech; Complete Time: 12:32 [facility] 08/14 11:46 Order name: IV Saline Lock; Complete Time: 12:44 [facility] 08/14 11:46 Order name: Labs collected and sent; Complete Time: 12:44 [facility] 08/14 11:46 Order name: O2 Per Protocol; Complete Time: 12:44 [facility] 08/14 11:46 Order name: O2 Sat Monitoring; Complete Time: 12:44 [facility] 08/14 13:45 Order name: Diet Ada 1800 Horace; Complete Time: 13:46 08/14 11:46 Order name: Urine Dipstick-Ancillary (obtain specimen); Complete Time: 12:32 [facility] Administered Medications: 12:30 Drug: SOLU-Medrol 125 mg Route: IVP; Site: right antecubital; ss 13:32 Follow up: Response: No adverse reaction em 12:35 Drug: Xopenex 3.75 mg Route: Inhalation; em 13:34 Follow up: Response: No adverse reaction; Marked relief of symptoms em 12:35 Drug: AtroVENT Aerosol 0.5 mg Route: Inhalation; em 13:34 Follow up: Response: No adverse reaction; Marked relief of symptoms em 12:37 Drug: NS 0.9% 1000 ml Route: IV; Rate: 125 ml/hr; Site: right antecubital; em 17:30 Follow up: IV Status: Infusion continued upon admission; IV Intake: 500ml em 12:40 Drug: Rocephin - (cefTRIAXone) 1 grams Route: IVPB; Infused Over: 30 mins; Site: right ss antecubital; 13:35 Follow up: Response: No adverse reaction; IV Status: Completed infusion; IV Intake: 10mlem 13:20 Drug: Zithromax 500 mg Route: IVPB; Infused Over: 1 hrs; Site: right antecubital; em 19:16 Follow up: IV Status: Completed infusion; IV Intake: 250ml em 13:49 Not Given (Patient Refused): Zofran 4 mg IVP once; over 2 minutes em 13:49 Drug: Aspirin 81 mg Route: PO; em 14:20 Follow up: Response: No adverse reaction em Disposition: 08/14/18 12:51 Hospitalization ordered by Fran Nelson for Inpatient Admission. Preliminary diagnosis are Weakness, Chronic obstructive pulmonary disease with (acute) exacerbation, Altered mental status, unspecified, Pulmonary fibrosis, unspecified. - Bed requested for Telemetry/MedSurg (Inpatient). - Status is Inpatient Admission. em - Condition is Stable. - Problem is new. - Symptoms have improved. UTI on Admission? No Signatures: Dispatcher [employer] Rose Han RN RN aj1 Armando Barragan MD MD cha Munoz, Edgar, INSTRUCTIONAL CONSULTANT INSTRUCTIONAL CONSULTANT Madelyn Olvera RN RN Sarah Smith RN RN df Corrections: (The following items were deleted from the chart) 17:09 12:51 Hospitalization Ordered by Fran Nelson MD for Inpatient Admission. Preliminary df diagnosis is Weakness; Chronic obstructive pulmonary disease with (acute) exacerbation; Altered mental status, unspecified; Pulmonary fibrosis, unspecified. Bed requested for Telemetry/MedSurg (Inpatient). Status is Inpatient Admission. Condition is Stable. Problem is new. Symptoms have improved. UTI on Admission? No. perez 17:31 17:09 08/14/2018 12:51 Hospitalization Ordered by Fran Nelson MD for Inpatient em Admission. Preliminary diagnosis is Weakness; Chronic obstructive pulmonary disease with (acute) exacerbation; Altered mental status, unspecified; Pulmonary fibrosis, unspecified. Bed requested for Telemetry/MedSurg (Inpatient). Status is Inpatient Admission. Condition is Stable. Problem is new. Symptoms have improved. UTI on Admission? No. df
[2018-08-14] MEDS ORDERED: AZITHROMYCIN IV 500 MG in NA CHLORIDE 0.9% 250 ML IVPB ONE (13:00)
[2018-08-14] MEDS ORDERED: ASPIRIN 81 MG CHEWABLE TABLET ONE (14:00)
[2018-08-14 14:02] LABS: Urine Blood NEGATIVE (NEG); Urine Glucose NEGATIVE (NEG); Urine Protein 1+ (NEG); Urine Specific Gravity 1.015 (1.005-1.030)
[2018-08-14] MEDS: INSULIN -REGULAR HUMAN 50 UNIT/0.5 ML ML SQ SCH ×2 (17:30→21:00)
[2018-08-14] MEDS ORDERED: ONDANSETRON 4 MG/2 ML VIAL IV PRN (17:30)
[2018-08-14] MEDS ORDERED: ALBUTEROL 2.5 MG/3 ML NEB SOL NEB PRN (17:30)
[2018-08-14] MEDS ORDERED: IPRATROPIUM BROM 0.5MG/2.5ML NEB PRN (17:30)
[2018-08-14] MEDS ORDERED: GLUCAGON 1 MG/VIAL IM PRN (17:37)
[2018-08-14] MEDS ORDERED: D50W 25 GM/50 ML SYRINGE IV PRN (17:37)
[2018-08-14 17:58] VITALS: BMI 25.1
[2018-08-14] MEDS: ENOXAPARIN 40 MG/0.4 ML SQ SCH (18:23)
[2018-08-14] MEDS: METHYLPREDNISOLONE 40 MG INJ IV SCH (18:23)
[2018-08-14] MEDS: HYDRALAZINE HCL 20 MG/ML VIAL IV PRN (18:39)
[2018-08-14] MEDS: ACETAMINOPHEN 500 MG TAB PO PRN (20:34)
--- NOTE | 2018-08-14 21:02 | EKG ---
Test Date: 2018-08-14 Test Time: 12:30:03 Ribbon Tier: CLAIRE MEASUREMENT RESULTS: Intervals: Rate: 70 AL: 144 QRSD: 122 QT: 438 QTc: 473 Dresher: P: 61 AL: 144 QRS: 41 T: 23 INTERPRETIVE STATEMENTS: Normal sinus rhythm Right bundle branch block Abnormal ECG Compared to ECG 05/26/2018 13:04:17 Right bundle-branch block now present Incomplete right bundle-branch block no longer present Electronically Signed On 08-14-18 21:01:55 CDT by Bandar Nguyễn
[2018-08-14] MEDS ORDERED: MELATONIN 3 MG TABLET PO ONE (23:42)
[2018-08-15] MEDS: HYDRALAZINE HCL 20 MG/ML VIAL IV PRN ×2 (00:05→12:29)
--- NOTE | 2018-08-15 00:07 | HP ---
Date of Admission: 08/14/2018 Chief Complaint: Shortness of breath. Code Status: Do not intubate. History Of Present Illness: The patient is an 88-year-old female with past medical history of COPD o n oxygen, hypertension, hyperlipidemia, diet-controlled diabetes who was in her usual state of health until approximately 2 weeks prior to admission when the patient had pneumonia. The patient was jose ernst with oral antibiotics, had gotten better. However, subsequently has been noncompliant with the u se of her oxygen. The patient continues to smoke at the age of 88, smokes 1 pack of cigarettes in ap proximately 4 days. The patient has been having worsening shortness of breath than usual, cough with sputum production. No fevers, chills, nausea, or vomiting. The patient has had decreased p.o. inta ke. The patient came into the ER for further evaluation. Upon arrival, her vital signs were stable. She was afebrile, saturating 97%. The patient did have some confusion and therefore had a head CT scan done, did not show any acute changes. Her chest x-ray shows COPD, chronic interstitial lung dis ease similar to comparison. The patient's symptoms were constant, moderate, progressively worsening. She was given breathing treatments and a dose of azithromycin and then referred for admission. Whe n seen in the ER, she was awake, alert, oriented x3, in some mild respiratory distress. Past Medical History: Hypertension, hyperlipidemia, diabetes, neuropathy, COPD, oxygen dependent, ch ronic back pain on pain medications. The patient also has depression and dementia. History of CVA. Past Surgical History: The patient has had previous back surgery. Allergies: TO STREPTOMYCIN, CAUSES HIVES. Medications: List reviewed. Social History: The patient smokes about 5 cigarettes a day. Has been smoking for over 50 years. N o alcohol use or illicit drug use. The patient lives at home. Requires assistance with her activiti es of daily living. Lives with her brother and [id number]. Family History: Noncontributory in this 88-year-old female. Review of Systems: An 11-point system reviewed, negative except as per HPI. Physical Examination: Vital Signs: Blood pressure 152/71, pulse 73, respirations 18, temperature 98.1, O2 of 97% on room a ir. General: Awake, alert, oriented x3. Elderly female in some mild respiratory distress, acute. HEENT: Normocephalic, atraumatic. PERRLA. EOMI. Moist mucous membranes. Oropharynx is clear. Con junctivae are anicteric. Poor dentition. Neck: Supple. No JVD. Trachea midline. CV: S1, S2. Regular rate and rhythm. Peripheral pulses weak. Respiratory: Diminished breath sounds . Diffuse wheezing heard. The patient is tachypneic. No use of accessory muscles. No stridor. Gas trointestinal: Abdomen is soft, nontender, nondistended. Positive bowel sounds. No guarding or rigi dity. Extremities: No clubbing, cyanosis, or edema. No calf tenderness. Neuro: Cranial nerves 2 through 12 intact grossly. No focal neurological deficit. Speech is normal . Skin: No rashes. Normal skin turgor. Psych: Mood is okay. Affect is flat. Insight and judgment are poor. Laboratory Data: Sodium 141, potassium 4.1, chloride 106, CO2 of 27, BUN 14, creatinine 0.95, glucos e 92, calcium 8.7, magnesium 2. Troponin less than 0.02. Procalcitonin less than 0.05. Lipase 108. INR 1.10. WBC 6.9, H and H 11.5 and 35.1, platelets 436, neutrophils 77%. UA is pending. Imaging Studies: Chest x-ray shows chronic interstitial lung disease similar to comparison. CT scan of the head shows no hemorrhage, mass, or acute intracranial finding, atrophy and chronic ischemic c hanges are present. Assessment: An 88-year-old female with: 1.Acute chronic obstructive pulmonary disease exacerbation. We will start on breathing treatments, supplemental oxygen and IV steroids. We will monitor on continuous pulse ox. 2.Essential hypertension. We will resume home medications as appropriate. 3.History of cerebrovascular accident on Plavix and statin. 4.Thrombocytosis, likely due to her smoking. 5.Nicotine dependence with cigarette smoking. Counseled, the patient is not receptive to quitting. 6.Diabetes mellitus type 2 [id number] with hyperglycemia. We will start on sliding scale insulin, monitor Accu-Cheks. 7.Major depressive disorder, single episode. Currently in remission. We will continue SSRI. 8.Mixed hyperlipidemia. Continue statin. 9.Gastroesophageal reflux disease. Continue PPI. 10.Dysphagia. We will have Speech evaluate the patient. 11.Dementia, Alzheimer's type without behavioral disturbance. 12.Deep venous thrombosis prophylaxis. Lovenox. Plan: Admit the patient to Med-Surg, place as inpatient. Length of stay greater than 2 midnights. ELIZABETH Voice ID: [id number]
[2018-08-15] MEDS: METHYLPREDNISOLONE 40 MG INJ IV SCH ×3 (00:09→16:16)
[2018-08-15] MEDS: ACETAMINOPHEN 500 MG TAB PO PRN ×3 (01:33→16:16)
[2018-08-15 04:52] LABS: Absolute Lymphocytes (CBC) 0.7 K/uL (0.7-4.9); Absolute Monocytes 0.1 K/uL (0.1-1.3); Absolute Neutrophil 6.6 K/uL (1.8-8.0); Basophils % 0.5 % (0-1.3); Eosinophils % 0.1 % (0-4.4); Hematocrit 35.8 % (36.0-45.0); Lymphocytes % 9.1 % (15.3-44.8); MPV 7.2 fL (7.6-11.3); Monocytes % 1.1 % (3.3-12.3); RBC Red Blood Cell Count 4.08 M/uL (3.86-4.86)
[2018-08-15 05:02] LABS: Potassium 4.3 mmol/L (3.5-5.1)
[2018-08-15 06:35] LABS: Blood Morphology Comment NOT SEEN (NOT SEEN); Platelet Estimate ADEQ
[2018-08-15] MEDS: INSULIN -REGULAR HUMAN 50 UNIT/0.5 ML ML SQ SCH ×4 (07:30→21:00)
[2018-08-15] MEDS ORDERED: HYDROCODONE/APAP 7.5/325 MG TAB PO PRN (08:20)
[2018-08-15] MEDS: FENOFIBRATE 160 MG TAB PO SCH (09:51)
[2018-08-15] MEDS: PANTOPRAZOLE 40MG TABLET PO SCH (09:51)
[2018-08-15] MEDS: ENOXAPARIN 40 MG/0.4 ML SQ SCH (09:52)
[2018-08-15] MEDS: CLOPIDOGREL 75 MG TABLET PO SCH (09:52)
[2018-08-15] MEDS: MONTELUKAST 10 MG TAB PO SCH (09:52)
[2018-08-15] MEDS: DOCUSATE NA 100 MG CAP PO SCH (09:52)
[2018-08-15] MEDS: DULOXETINE 30 MG CAP PO SCH (09:52)
[2018-08-15] MEDS: AMLODIPINE 10 MG TAB PO SCH (09:52)
[2018-08-15] MEDS: GABAPENTIN 300 MG CAP PO SCH ×3 (09:52→20:29)
[2018-08-15 18:21] LABS: Urine Appearance CLOUDY; Urine Bilirubin NEGATIVE (NEG); Urine Blood NEGATIVE (NEG); Urine Color YELLOW; Urine Glucose NEGATIVE (NEG); Urine Protein 2+ (NEG); Urine Urobilinogen 0.2 mg/dL (0.2-1.0); Urine pH 5.5 (5.0-7.0)
--- NOTE | 2018-08-15 18:32 | PN ---
Date of Progress Note: 08/15/2018 Subjective: The patient is seen and examined. Chart reviewed and case discussed with RN. The patie nt is still having difficulty of breathing. Continues to have some cough with sputum production as w ell as diffuse wheezing. The patient wanted to go home. I explained to her that she is not medicall y stable. She voiced understanding. Family at the bedside. Treatment plan explained. All question s answered. Medications: List reviewed. Physical Examination: Vital Signs: Temperature 98.2, heart rate 97, blood pressure 193/90, respirations 20, and O2 of 95% on 2 L via nasal cannula. General: Awake, alert and oriented x3. Elderly female, some mild respiratory distress. CV: S1 and S2. Peripheral pulses weak. Regular rate and rhythm. Respiratory: Diminished breath sounds. Wheezing heard throughout. The patient is tachypneic with u se of accessory muscles. Gastrointestinal: Abdomen is soft, nontender, and nondistended. Positive bowel sounds. No guarding or rigidity. Extremities: No clubbing, cyanosis, or edema. Neurologic: Nonfocal. Laboratory Data: Sodium 139, potassium 4.3, chloride 106, CO2 of 26, BUN 17, creatinine 0.77, glucos e 141, and calcium 9. WBCs 7.5, H and H of 11.5 and 35.8, platelets 385, neutrophils 89%. Blood cul tures, no growth to date. Urine culture growing out mixed norm. Assessment And Plan: An 88-year-old female with, 1.Acute chronic obstructive pulmonary disease exacerbation. Continue breathing treatments and suppl emental oxygen. The patient is on IV steroids at this time. Still having diffuse wheezing, currentl y on 2 L. We will continue to monitor. 2.Essential hypertension, uncontrolled. We will need to adjust home medications. We will add IV p. r.n. medication. 3.History of cerebrovascular accident, stable. We will continue Plavix and statin. 4.Thrombocytosis, likely due to her nicotine dependence, platelets have now normal range. 5.Nicotine dependence with cigarette smoking, counseled. 6.Diabetes mellitus type 2, non-insulin requiring with hyperglycemia. We will continue sliding scal e insulin. Monitor Accu-Cheks. 7.Major depressive disorder, single episode, currently in remission. We will continue SSRI. 8.Mixed hyperlipidemia. Continue statin. 9.Gastroesophageal reflux disease without esophagitis. Continue PPI. 10.Dysphagia. Speech therapy evaluation pending. 11.Dementia, Alzheimer's type without behavioral disturbance. We will continue donepezil. 12.Deep venous thrombosis prophylaxis with Lovenox. PLAN: Continue current treatment. Repeat chest x-ray if not improving, likely discharge in the next 24 to 48 hours depending on clinical response. Follow up with speech therapy evaluation. ELIZABETH Voice ID: [id number] Report ID: [id number]
[2018-08-15 18:59] LABS: Urine Bacteria <20 /HPF (<20); Urine Mucus 2+ /HPF (NONE SEEN); Urine RBC <5 /HPF (NONE SEEN)
[2018-08-15 19:35] LABS: Urine Culture Reflex Order NOT NEEDED
[2018-08-15] MEDS ORDERED: DONEPEZIL HCL 5 MG TAB PO SCH (21:00)
[2018-08-16] MEDS: METHYLPREDNISOLONE 40 MG INJ IV SCH ×2 (00:30→09:46)
[2018-08-16] MEDS: HYDRALAZINE HCL 20 MG/ML VIAL IV PRN (00:48)
[2018-08-16] MEDS: ACETAMINOPHEN 500 MG TAB PO PRN (05:13)
[2018-08-16 06:05] LABS: Absolute Lymphocytes (CBC) 0.6 K/uL (0.7-4.9); Absolute Monocytes 0.2 K/uL (0.1-1.3); Absolute Neutrophil 8.6 K/uL (1.8-8.0); Basophils % 0.5 % (0-1.3); MPV 6.8 fL (7.6-11.3); Monocytes % 1.8 % (3.3-12.3); RBC Red Blood Cell Count 3.88 M/uL (3.86-4.86)
[2018-08-16 06:15] LABS: Potassium 4.1 mmol/L (3.5-5.1)
[2018-08-16] MEDS: INSULIN -REGULAR HUMAN 50 UNIT/0.5 ML ML SQ SCH ×2 (07:30→11:30)
[2018-08-16] MEDS ORDERED: CHLORTHALIDONE 25 MG TAB PO SCH (09:00)
[2018-08-16] MEDS: FENOFIBRATE 160 MG TAB PO SCH (09:00)
[2018-08-16] MEDS: AMLODIPINE 10 MG TAB PO SCH (09:45)
[2018-08-16] MEDS: PANTOPRAZOLE 40MG TABLET PO SCH (09:45)
[2018-08-16] MEDS: DULOXETINE 30 MG CAP PO SCH (09:45)
[2018-08-16] MEDS: CLOPIDOGREL 75 MG TABLET PO SCH (09:45)
[2018-08-16] MEDS: DOCUSATE NA 100 MG CAP PO SCH (09:45)
[2018-08-16] MEDS: GABAPENTIN 300 MG CAP PO SCH ×2 (09:45→13:45)
[2018-08-16] MEDS: ENOXAPARIN 40 MG/0.4 ML SQ SCH (09:46)
[2018-08-16] MEDS: MONTELUKAST 10 MG TAB PO SCH (09:47)
[2018-08-16 10:57] VITALS: O2SAT 96
[2018-08-16 12:23] VITALS: BP 146/67; TEMP 98.3
--- NOTE | 2018-08-16 12:49 | P.SSS ---
Patient History Date of Service: 08/16/18 Reason for admission: COPD exacerbation History of Present Illness: The patient is an 88-year-old female with past medical history of COPD on oxygen , hypertension, hyperlipidemia, diet-controlled diabetes who was in her usual state of health until approximately 2 weeks prior to admission when the patient had pneumonia. The patient was treated with oral antibiotics, had gotten better. However, subsequently has been noncompliant with the use of her oxygen. The patient continues to smoke at the age of 88, smokes 1 pack of cigarettes in approximately 4 days. The patient has been having worsening shortness of breath than usual, cough with sputum production. No fevers, chills , nausea, or vomiting. The patient has had decreased p.o. intake. The patient came into the ER for further evaluation. Upon arrival, her vital signs were stable. She was afebrile, saturating 97%. The patient did have some confusion and therefore had a head CT scan done, did not show any acute changes. Her chest x-ray shows COPD, chronic interstitial lung disease similar to comparison. The patient's symptoms were constant, moderate, progressively worsening. She was given breathing treatments and a dose of azithromycin and then referred for admission. When seen in the ER, she was awake, alert, oriented x3, in some mild respiratory distress. Allergies streptomycin Allergy (Verified 05/12/18 10:39) [facility] Home Medications: RX: Acetaminophen [Tylenol Extra Strength] 1 tab PO Q4H 08/14/18 RX: Albuterol Sulfate [Proair Hfa] 1 puff IH DAILY 08/14/18 RX: Amlodipine Besylate [Norvasc] 10 mg PO DAILY 08/14/18 RX: Clopidogrel Bisulfate [Plavix*] 75 mg PO DAILY 08/14/18 RX: Cranberry Fruit Extract [Cranberry] 425 mg PO BID 08/14/18 RX: Docusate Sodium [Stool Softener] 100 mg PO DAILY 08/14/18 RX: Donepezil HCl 10 mg PO BEDTIME 08/14/18 RX: Duloxetine HCl [Cymbalta] 1 tab PO DAILY 08/14/18 RX: Fenofibrate [Tricor*] 145 mg PO DAILY 08/14/18 RX: Gabapentin [Neurontin] 600 mg PO TID 08/14/18 RX: Ipratropium/Albuterol Sulfate [Iprat-Albut 0.5-3(2.5) mg/3 ml] 3 ml IH QID 08/14/18 RX: Montelukast [Singulair*] 10 mg PO DAILY 08/14/18 RX: Multivitamin/Iron/Folic Acid [Centrum Adults Tablet] 1 tab PO DAILY RX: Pantoprazole Sodium [Protonix] 40 mg PO DAILY 08/14/18 RX: Vitamin E 1 tab PO BID 08/14/18 RX: Hydrocodone/Acetaminophen [Hydrocodone-Acetamin 7.5-325] 1 tab PO TID RX: Chlorthalidone [Hygroton 25mg Tab*] 25 mg PO DAILY #30 tab 08/16/18 predniSONE [Prednisone] 20 mg PO BID #14 tablet 08/16/18 - Past Medical/Surgical History Has patient received pneumonia vaccine in the past: Yes Diabetic: Yes -: HTN -: COPD -: Depression -: Hyperlipidemia -: Dementia -: NIDDM -: hysterectomy -: cholecystectomy - Family History Father -: Cancer Mother -: Heart disease - Social History Smoking Status: Current every day smoker Alcohol use: No CD- Drugs: No Caffeine use: No Place of Residence: Home Review of Systems 10-point ROS is otherwise unremarkable Physical Examination - Vital Signs Temperature: 98.3 F Blood Pressure: 146/67 Pulse: 87 Respirations: 18 Pulse Ox (%): 95 - Physical Exam General: Alert, In no apparent distress, Oriented x3 HEENT: Atraumatic, PERRLA, Mucous membr. moist/pink, EOMI, Sclerae nonicteric Neck: Supple, 2+ carotid pulse no bruit, No LAD, Without JVD or thyroid abnormality Respiratory: Normal air movement, Expiratory wheezes (Generalized, improved) Cardiovascular: Regular rate/rhythm, Normal S1 S2 Gastrointestinal: Normal bowel sounds, No tenderness Musculoskeletal: No tenderness Integumentary: No rashes Neurological: Normal gait, Normal speech, Normal strength at 5/5 x4 extr, Normal tone, Normal affect Lymphatics: No axilla or inguinal lymphadenopathy - Studies Microbiology Data (last 24 hrs): 08/14/18 13:40 Catheterized Urine [place] Count - Final <10,000 CFU/ML. 08/14/18 13:40 Catheterized Urine - Final Treatment Summary: Patient was admitted to the [facility] floor for acute chronic obstructive pulmonary disease exacerbation. She was started on giving treatments, oxygen as needed and IV steroids. Her symptoms improved though she continued to have diffuse wheezing. She is already on home oxygen. Her symptoms improved and patient really wanted to go home. Prior to discharge, she was on her home oxygen, her breathing had improved. She was denying any symptoms of chest pain or shortness of breath at this time. She was also denying any swallowing or eating problems. She was tolerating a regular diet. Her diagnoses/treatment plans discussed with her. All questions were answered and patient verbalized understanding. She was discharged home in a safe and stable manner. Prior to discharge, she was hemodynamically stable, lab work was stable and her symptoms were improved. Throughout the stay, her blood pressure was uncontrolled. She was given IV p.r.n. medication and her home medications were adjusted. She will be discharged on her home medications of amlodipine along with addition of chlorthalidone 25 mg daily. Her blood pressures were controlled after addition of new medications. She otherwise remained stable throughout the stay. - Disposition Discharge Date: 08/16/18 Disposition: ROUTINE DISCHARGE Condition: GOOD Patient Discharge Instructions: Please follow up with your primary care physician in 2-3 days. Please return to the Emergency room for worsening symptoms Diet: AHA Activity: Ad neptali Time Spent Managing Pts Care (In Minutes): 55
== END 2018-08-16 14:40 | disposition home or self-care (01) ==
LOC: SUPCPDRO 11:01 → ER 11:01 → INTOOBSV 13:51 → ERHOLD 13:51 → 2ND 17:21
PROVIDERS: ADMIT Family Medicine; ATTEND Family Medicine
DX: J44.1 Chronic obstructive pulmonary disease with (acute) exacerbation (principal); I10 Essential (primary) hypertension; E78.5 Hyperlipidemia, unspecified; E11.9 Type 2 diabetes mellitus without complications; F32.9 Major depressive disorder, single episode, unspecified; E78.2 Mixed hyperlipidemia; F17.210 Nicotine dependence, cigarettes, uncomplicated; Z86.73 Personal history of transient ischemic attack (TIA), and cerebral infarction without residual deficits; Z99.81 Dependence on supplemental oxygen
CPT/HCPCS: 96365; 93005; 87040 ×2; 87088; 85025 ×3; 81001; 87086; 80048 ×3; 36415 ×2; 83735; 85610; 82962 ×8; 80076; 81003; 84484; 83690; 84145; 83880; 70450; 71045; 92610; 97116; 97163; 97530; 94640; 94760 ×4; 96375; 99285; 96366; J0360 ×4; J0456; J1650 ×3; J0696; J7030; J2930; J2405; J2920 ×6; G0378 ×2